=== PATIENT | female | born 1990 | race African-American/Black ===

== ENCOUNTER 2019-06-06 14:08 | Emergency (ER) | payer BC, OTHER ==
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
[2019-06-06] MEDS ORDERED: IBUPROFEN 200 MG TAB PO ONE (17:39)
== END 2019-06-06 17:39 | disposition home or self-care (01) ==
LOC: ER 14:08
DX: M62.830 Muscle spasm of back (principal); M79.18 Myalgia, other site; G35 Multiple sclerosis; V49.9XXA Car occupant (driver) (passenger) injured in unspecified traffic accident, initial encounter
CPT/HCPCS: 81025; 99283

== ENCOUNTER 2020-05-01 09:28 | Emergency (ER) | payer BC ==
--- OUTSIDE RECORDS SUMMARY | 2020-05-01 09:32 | XMS REPORT | Continuity of Care Document ---
:1990 Author Organization [email or web address] Care Team Providers Name Role Phone [email or web address] Unavailable Un available Problems Problem Status Onset Classification Date Comments Sourc e Date Reported Uses oral Active 08/15/2019 [facility] contraception 9 Health Leiomyoma Active 08/15/2019 [facility] 9 Health Medications Medication Details Route Status Patient Ordering Order Source Instructions Provider Date norgestimate- Take 1 Oral Active [facility] ethinyl tablet by [address] [place] [address] estradiol mouth ([id number] daily. ALEX) 0.18/0.215/0. 25 mg-25 mcg tablet glatiramer inject 20 Subcutaneous Active [facility] (COPAXONE) 20 mg under Health mg/mL the skin injection daily. syringe Allergies, Adverse Reactions, Alerts No Known Medication Allergies Immunizations No Data Provided for This Section Results No Data Provided for This Section Pathology Reports No Data Provided for This Section Diagnostic Reports No Data Provided for This Section Consultation Notes No Data Provided for This Section Discharge Summaries No Data Provided for This Section History and Physicals No Data Provided for This Section Vital Signs No Data Provided for This Section Encounters Location Location Encounter Encounter Reason Attending ADM [facility] Source Details Type Number For Provider Date Date Visit [facility] Letter [id number] [place] 08/15 [facility] (Out) [facility] Procedures No Data Provided for This Section Assessment and Plan No Data Provided for This Section Plan of Care Plan of Care Date Source Upcoming EncountersDateTypeSpecialtyCare TeamDescription [facility] 09/09/2019 Office Visit Obstetrics and Gynecology Adwoa Miranda MD[address] [place] [address] DR.[address] yates [address] [place] [address] [phone] (Fax) Health MaintenanceDue DateLast DoneComments VARICELLA VACCINES (1 of 2 - 13+ 2-dose series) 2005 HPV VACCINES (1 - Female 3-dose series) 2007 DTaP,Tdap,and Td Vaccines (1 - Tdap) 2011 PAP SMEAR 2013 INFLUENZA VACCINE (#1) 2019 PNEUMOCOCCAL 0-64 YEARS COMBINED SERIES Aged Out No longer eligible based on patient's age to complete this t opic documented as of this encounter INFLUENZA VACCINE (#1) 2019 [facility] Health PAP SMEAR 2013 [facility] DTaP,Tdap,and Td Vaccines (1 - Tdap) 2011 [facility] HPV VACCINES (1 - Female 3-dose series) 2007 [facility] VARICELLA VACCINES (1 of 2 - 13+ 2-dose 2005 [facility] series) Social History Social History Date Source Tobacco UseTypesPacks/DayYears UsedDate 02/07/2019 [facility] Never Smoker Smokeless Tobacco: Never Used Alcohol UseDrinks/Weekoz/WeekComments Yes rare Sex Assigned at BirthDate Recorded Not on file Job Start DateOccupationIndustry Not on file Not on file Not on file Travel HistoryTravel StartTravel End No recent travel history available. documented as of this encounter Family History No Data Provided for This Section Advance Directives No Data Provided for This Section Functional Status No Data Provided for This Section
--- OUTSIDE RECORDS SUMMARY | 2020-05-01 09:33 | XMS REPORT | Continuity of Care Document ---
:1990 Author Organization [facility] t Address [address] [place] [address] Care Team Providers Name Role Phone NICANOR Attending Clinician Unavailable ENDER Attending Clinician Unavailable Geronimo MARROQUIN Attending Clinician Problems Condition Condition Condition Status Onset Resolution Last Treating Co mments Source Name Details Category Date Date Treatment Clinician Date Uses oral Condition Active 2019-08-15 Memoria contracept 3-14 13:18:27 l ion Uses 00:00: Howie oral 00 contracept ion Active 02/07/2019 08/15/2019 [facility] Health Leiomyoma Condition Active 2019-08-15 Memoria 3-14 13:18:27 l 00:00: Howie Leiomyoma 00 Active 02/07/2019 08/15/2019 [facility] Health History of History of Problem Active U nivers optic optic ity of neuritis neuritis [place] [facility] Vitamin D Vitamin D Problem Active Uni vers deficiency deficiency it y of [place] [facility] Right Right Problem Active Univers facial facial ity of numbness numbness [place] [facility] Multiple Multiple Problem Active Unive rs sclerosis sclerosis ity of [place] [facility] High risk High risk Problem Active Uni vers medication medication it y of use use [place] [facility] Allergies, Adverse Reactions, Alerts This patient has no known allergies or adverse reactions. Family History Family Member Diagnosis Comments Start Date Stop Date Source Mother Family history of [facility] [place] asthma Physicians Father Family history of [facility] [place] hypertension Physicians Social History Smoking Status Start Date Stop Date Source Tobacco smoking status INIS Tera rial Howie Medications Ordered Filled Start Stop Current Ordering Indication Dosage Frequency Signature Comments Components Source Medication Medication Date Date Medication? Clinician (SIG) Name Name Copaxone 40 Copaxone 40 2018-11 Yes LUDMILA Inject 40 Univers MG/ML MG/ML 0-22 BROWN M.D. mg every ity of Subcutaneou Subcutaneou 00:00: Mon, Wed, [place] s Solution s Solution 00 and Fri (3 Physici Prefilled Prefilled days/week) ans Syringe Syringe glatiramer Yes inject 20 Me moria (COPAXONE) 9-19 mg under l 20 mg/mL 13:18: the skin Paty nn injection 27 daily. syringe norgestimat Yes Take 1 Tera heather e-ethinyl 3-14 tablet by l estradiol 00:00: mouth [place] (TRI-LO-SPR 00 daily. INTEC) 0.18/0.215/ 0.25 mg-25 mcg tablet Vital Signs Vital Name Observation Time Observation Value Comments Source Body height 2020-02-05 65 [in_us] [facility] 08:59:00 [place] [facility] Weight 2020-02-05 196 [lb_av] [facility] 08:59:00 [place] [facility] Body mass index 2020-02-05 32.62 kg/m2 [place] [facility] f (BMI) [Ratio] 08:59:00 [place] [facility] BP Systolic 2019-12-26 120 mm[Hg] [facility] 09:21:00 [place] [facility] BP Diastolic 2019-12-26 83 mm[Hg] [facility] :21:00 [place] [facility] Height 2019-12-26 65 [in_us] [facility] 09:21:00 [place] [facility] Weight 2019-12-26 192 [lb_av] [facility] 09:21:00 [place] [facility] Body Mass Index 2019-12-26 31.95 kg/m2 University o f Calculated 09:21:00 [place] [facility] Heart Rate 2019-12-26 86 /min [facility] 09:21:00 [place] [facility] BP Systolic 2019-12-03 117 mm[Hg] Location: [facility] 11:02:00 Position: [place] [facility] Sitting BP Diastolic 2019-12-03 80 mm[Hg] Location: [facility] 11:02:00 Position: [place] [facility] Sitting Height 2019-12-03 65 [in_us] [facility] 11:02:00 [place] [facility] Weight 2019-12-03 196.5 [lb_av] [place] [facility] 11:02:00 [place] [facility] Body Mass Index 2019-12-03 32.7 kg/m2 [place] [facility] Calculated 11:02:00 [place] [facility] Temperature 2019-12-03 97.9 [degF] Method: Oral [facility] 11:02:00 [place] [facility] Heart Rate 2019-12-03 77 /min Quality: Normal [facility] o f 11:02:00 [place] [facility] BP Systolic 2019-09-17 115 mm[Hg] Location: [facility] 13:12:00 Position: [place] [facility] Sitting BP Diastolic 2019-09-17 77 mm[Hg] Location: [facility] 13:12:00 Position: [place] [facility] Sitting Height 2019-09-17 65 [in_us] [facility] 13:12:00 [place] [facility] Weight 2019-09-17 194.375 [lb_av] [place] [facility] 13:12:00 [place] [facility] Body Mass Index 2019-09-17 32.35 kg/m2 [place] [facility] Calculated 13:12:00 [place] [facility] Temperature 2019-09-17 98.2 [degF] Method: Oral [facility] 13:12:00 [place] [facility] Heart Rate 2019-09-17 77 /min Location: [facility] 13:12:00 Brachial [place] [facility] Artery; Procedures Procedure Date / Time Performing Clinician Source Performed [QLH] CBC (INCLUDES 2019-12-26 00:00:00 [facility] DIFF/PLT) Physicians [QLH] CMP W/EGFR 2019-12-26 00:00:00 [facility] Physicians [QLH] HEPATITIS PANEL 2019-12-26 00:00:00 [facility] [QLH] HEPATITIS B CORE AB 2019-12-26 00:00[facility] [QLH] VITAMIN D, 2019-12-03 00:00:00 [facility] 25-HYDROXY, LC/MS/MS Physicians [L] Stratify ABHINAV(TM) Ab 2019-12-03 00:00:00 [facility] [L] NMO IgG 2019-12-03 00:00:00 [facility] [place] Autoantibodies Physicians MRI Brain w/wo contrast 2019-10-14 00:00:00 [facility] [id number] Physicians [QLH] CBC (INCLUDES 2019-09-17 00:00:00 [facility] DIFF/PLT) Physicians [QLH] CMP W/EGFR 2019-09-17 00:00:00 [facility] Physicians [QLH] VITAMIN D, 2019-09-17 00:00:00 [facility] 25-HYDROXY, LC/MS/MS Physicians MRI Brain w/wo contrast 2019-09-17 00:00:00 [facility] [id number] Physicians MRI Spine cervical w/wo 2019-09-17 00:00:00 [facility] contrast [id number] Physicians MRI Spine thoracic w/wo 2019-09-17 00:00:00 [facility] contrast [id number] Physicians History of Dilation And [facility] Curettage Of Cervical Physicians Stump Plan of Care Planned Activity Planned Date Details Comments Source Future Scheduled Test 2019-08-15 13:18:16 Plan of Care [code [facility] = 37653-1] Future Scheduled Test 2019-07-28 00:00:00 [facility] 78[facility] Future Scheduled Test 2013 00:00:00 [facility] = 44811-2[facility] Future Scheduled Test 2011 00:00:00 [facility] = 23775-7] Future Scheduled Test 2007 00:00:00 [facility] = 10153-2] Future Scheduled Test 2005 00:00:00 [facility] = 17314-0] Encounters Start End Encounter Admission Attending Care Care Encounter Source Date/Time Date/Time Type Type Clinicians Facility Department ID 2020-02-05 2020-02-05 Appointmen NICANOR ADKINS Neurology - [id number] Univers 09:00:00 09:00:00 t; NARCISA [place] [facility] [place] M.D. [facility] [place] [facility], [facility]OHIN[facility], [facility] Jonh ans 2019-12-26 2019-12-26 Appointsang ADKINS Neurology - [id number] Univers 09:00:00 09:00:00 tNARCISA Hobbs [place] [facility] [place] M.D. [facility] [place] [facility], ROHINI Center Physi ci M.Natalya ans 2019-12-03 2019-12-03 Appointmen ENDERLUCILLE Neurology - [id number] Univers 10:30:00 10:30:00 t; LUDMILA HANDLEY [place] [facility] [place], [facility]. [facility] 2019-09-17 2019-09-17 AppointLUCILLE Dc Multispecia [id number] [facility] 13:00:00 13:00:00 t; LUDMILA HANDLEY lty Y[facility]. [facility] 2019-08-15 2019-08-15 Letter Geronimo [facility] [id number] 00:00:00 00:00:00 (Out) Hunter Perez [id number] [place] [id number] Professio [phone] [facility] [address] [facility] 2019-08-15 2019-08-15 Delaney Melton KYRUSSELL [id number] 00:00:00 00:00:00 (Out) Hunter Perez [id number] [place] [id number] Professio [phone] [address] Results Test Description Test Time Test Comments Results Result Comments Source [[facility]] CBC (INCLUDES DIFF/PLT) 2019-12-26 18:28:01 Test Item Value Reference Range Interpretation Comme nts WBC (test code = 6690-2) 4.0 {K/CMM} 3.7-10.4 RBC (test code = 789-8) 5.17 {M/CMM} 4.20-5.40 Hgb (test code = 718-7) 14.3 g/dl 12.0-16.0 Hct (test code = 94810-7) 43.9 % 36.0-48.0 MCV (test code = 787-2) 84.9 fL 80.0-98.0 MCH (test code = 785-6) 27.7 pg 27.0-31.0 MCHC (test code = 786-4) 32.6 g/dl 32.0-36.0 RDW (test code = 788-0) 14.0 % 11.5-14.5 Platelet (test code = 15746-6) 228 {K/CMM} 133-450 Mean Platelet Volume (test code = 90000-7) 10.2 fL 7.4-10.4 [facility] Physicians[[facility]] [id number] 18:28:01 Test Item Value Reference Range Interpretation Comments Segmented Neutrophils (test code 47.4 % 45.0-75.0 = 75869-9) Monocytes (test code = 95768-1) 7.1 % 2.0-12.0 Lymphocytes; Above High Threshold 42.8 % 20.0-40.0 (test code = 90015-0) Eosinophils (test code = 64440-6) 2.0 % 0.0-4.0 Basophils (test code = 706-2) 0.7 % 0.0-1.0 Segs-Bands # (test code = 1.9 {K/CMM} 1.5-8.1 06732-4) Lymphocytes # (test code = 1.7 {K/CMM} 1.0-5.5 87046-5) Monocytes # (test code = 05465-8) 0.3 {K/CMM} 0.0-0.8 Eosinophils # (test code = 0.1 {K/CMM} 0.0-0.5 50425-5) [facility] Physicians[[facility]] CMP [id number] 18:28:01 Test Item Value Reference Range Interpretation Comments Sodium Level 143 {mEq/l} 135-145 (test code = 2951-2) Potassium Level 4.7 {mEq/l} 3.5-5.1 (test code = 2823-3) Chloride Level 108 {mEq/l} 95-109 (test code = 2075-0) Carbon Dioxide 28 {mEq/l} 24-32 (test code = 2027-9) AGAP (test code = 11.7 {mEq/l} 10.0-20.0 76914-1) Glucose Lvl (test 72 mg/dl 70-99 Adult refe rence range code = 2345-7) values reflec t the clinical guidel inesof the [place] Diabet es Association. Creatinine Lvl 0.80 mg/dl 0.50-1.40 (test code = 2160-0) Blood Urea 11 mg/dl 7-22 Nitrogen (test code = 3094-0) BUN/Creatinine 14 6-25 Ratio (test code = 3097-3) Total Protein 7.0 g/dl 6.4-8.4 (test code = 2885-2) Albumin Lvl (test 3.8 g/dl 3.5-5.0 code = 1751-7) Globulin (test 3.2 g/dl 2.7-4.2 code = 43418-2) A/G Ratio (test 1.2 0.7-1.6 code = 1759-0) Calcium Level 9.2 mg/dl 8.5-10.5 Total (test code = 63973-4) ALT (test code = 19 u/l 0-65 1743-4) AST (test code = 13 u/l 0-37 50053-0) Alk Phos (test 58 u/l 39-136 The pediatric reference code = 1783-0) ranges for th is test represent a CLSI-basedtrans ference of the CALIPER amni abase of pediatric refer ence intervals to eSiemens Long Key analyzer (Clinical Biochemistry 46 (2013): 4779-9594). [facility] has not internally validated these reference ranges and therefore they should be used only in th e context of a thoroughcl inical assessment. Bili Total (test 0.6 mg/dl 0.2-1.3 code = 1975-2) eGFR (test code = 101 The eGFR i s calculated 35954-2) {ML/MIN/1.7} using the CKD-E PI formula. In mos t young, healthyindividu als the eGFR will be >9 0 mL/min/1.73m2. The eGFR declines with a ge. AneGFR of 60-89 may be normal in some population s, particularly th e elderly, forwhom the CKD -EPI formula has not been extensively perry idated. Use of the eGFR isnot recommended in the following populations:Ind ividuals with unstable c reatinine concentrations, including patient s and those with seri ous co-morbid conditions.Devorah ents with extremes in mus olamide mass or diet.The mani a above are obtained fr om the National Kidney Disease Education Progr am(NKDEP) which additiona gerryy recommends that when the eGFR is used in patientswith ex tremes of body mass index for purposes of karson g dosing, the eGFR should be multiplied by t he estimated BMI. [facility] Physicians[[facility]] HEPATITIS [id number] 18:28:01 Test Item Value Reference Range Interpretation Comments Hepatitis B Surface Antigen (test Negative Negative code = 5195-3) Hepatitis B Core IgM (test code = Negative Negative 75271-6) Hepatitis C Antibody (test code = Negative Negative 39848-5) Hepatitis A IgM (test code = Negative Negative 50521-1) [facility]] HEPATITIS B CORE AB [id number] 18:28:01 Test Item Value Reference Range Interpretation Comments Hepatitis B Core Antibody (test code Negative Negative = 60313-4) [facility] [id number] 07:28:00Spine cervical w/wo contrast MRI 10/01/2019 7:28 CSTCLINICAL: MS (ICD- G35) - CERVICAL SPINE W/WOTECHNIQUE: Multiplanar multisequence imaging of the cervical spine wasperformed without and with administration of intravenous gadolinium.Contrast: 18 mL gadolinium IV contrast.COMPARISON: 08/27/2013 MRI exam.FINDINGS:Multilevel spinal cord abnormal signal lesions are again seen, and the majorityare slightly smaller compared to 2012. For example, the C2-C3 interspace levellesion now measures 5.1 mm, compared to 6.7 mm previously. No mass effect orabnormal enhancement is identified.The spinal cord volume is at lower limits of normal for age.Brainstem medulla lesion measuring 8 mm craniocaudal dimension isalso presenton this exam, not demonstrated on the prior exam.No disc herniation identified. No central canal or foraminal stenosis.IMPRESSION:1. Slightly smaller cervical spinal cord demyelination plaqu es compared vy4845. No mass effect or abnormal enhancement.2. Spinal cord volume at lower limits of normal for age.3. 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 Noabnormal enhancement.--Read by: Richi Gamez MDDictated Date/time: 10/01/19 08:53Electronically Signed by: Richi Gamez MD 10/01/1909:03[facility]] CMP [id number] 10:50:00 Test Item Value Reference Range Interpretation Comments Glucose (test code = 2345-7) 89 mg/dL 65-99 BUN (test code = 3094-0) 13 mg/dL 6-20 Creatinine (test code = 0.87 mg/dL 0.57-1.00 2160-0) eGFR If NonAfricn Am (test 92 mL/min/1.7 >59 code = 03840-2) eGFR If Africn Am (test code = 106 mL/min/1.7 >59 67368-6) BUN/Creatinine Ratio (test 15 9-23 code = 3097-3) Sodium, Serum (test code = 143 mmol/L 845-157 2244-2) Potassium (test code = 2823-3) 4.4 mmol/L 3.5-5.2 Chloride (test code = 2075-0) 106 mmol/L 96-106 Carbon Dioxide, Total (test 24 mmol/L 20-29 code = 8-9) Calcium, Serum (test code = 9.2 mg/dL 8.7-10.2 01471-1) Protein, Total (test code = 6.5 g/dL 6.0-8.5 2885-2) Albumin (test code = 1751-7) 4.1 g/dL 3.5-5.5 Globalulin, Total (test code = 2.4 g/dL 1.5-4.5 65738-3) A/G Ratio (test code = 1759-0) 1.7 1.2-2.2 Bilirubin, Total (test code = 0.4 mg/dL 0.0-1.2 1975-2) Alkaline Phosphatase (test 51 {IU/L} 39-117 code = 6768-6) AST (SGOT) (test code = 12 {IU/L} 0-40 1920-8) ALT (SGPT) (test code = 12 {IU/L} 0-32 1742-6) [facility]] CBC (INCLUDES DIFF/PLT)2019-09-23 10:50:00 Test Item Value Reference Range Interpretation Comments WBC (test code = 6690-2) 4.1 {x10E3/uL} 3.4-10.8 RBC (test code = 789-8) 5.20 {x10E6/uL} 3.77-5.28 Hemoglobin (test code = 14.0 g/dL 11.1-15.9 718-7) Hematocrit (test code = 44.7 % 34.0-46.6 4544-3) MCV (test code = 787-2) 86 fL 79-97 MCH (test code = 785-6) 26.9 pg 26.6-33.0 MCHC; Below Low Threshold 31.3 g/dL 31.5-35.7 (test code = 786-4) RDW (test code = 788-0) 13.2 % 12.3-15.4 Platelets (test code = 777-3) 251 {x10E3/uL} 150-450 Neutrophils (test code = 47 % Not Estab. 770-8) Lymphs (test code = 736-9) 44 % Not Estab. Monocytes (test code = 7 % Not Estab. 5905-5) Eos (test code = 713-8) 2 % Not Estab. Basos (test code = 706-2) 0 % Not Estab. Immature Cells (test code = See Comment Immature Cells) Neutrophils (Absolute) (test 1.9 {x10E3/uL} 1.4-7.0 code = 751-8) Lymphs (Absolute) (test code 1.8 {x10E3/uL} 0.7-3.1 = 731-0) Monocytes(Absolute) (test 0.3 {x10E3/uL} 0.1-0.9 code = 742-7) Eos (Absolute) (test code = 0.1 {x10E3/uL} 0.0-0.4 711-2) Baso (Absolute) (test code = 0.0 {x10E3/uL} 0.0-0.2 704-7) Immature Granulocytes (test 0 % Not Estab. code = 24855-7) Immature Grans (Abs) (test 0.0 {x10E3/uL} 0.0-0.1 code = 21210-5) NRBC (test code = 26922-1) See Comment Hematology Comments: (test See Comment code = 33024-6) [facility] [place] [facility]] VITAMIN D, 25-HYDROXY, LC/MS/[id number] 10:50:00 Test Item Value Reference Range Interpretation Comments Vitamin D, 21.0 ng/mL 30.0-100.0 Vitamin D defic iency has 25-Hydroxy; Below been defin ed by the Low Threshold (test Institut [facility] ofMedicine and code = 00878-3) an Endocrine Society practice guidel ine as alevel of serum 25-OH vitamin D less than 20 ng/mL (1,2).The Endocrine Socie ty went on to further d efine vitamin Dinsuff iciency as a level betw een 21 and 29 ng/mL (2 ).1. IOM ([place] of M edicine). 2010. Dietary r eference intakes for ca lcium and D. Christie D C: The National Academ ies Press.2. Martha VIEIRA, Ivonne TORRES, Belkis guy LOWRY, et al. Evaluatio n, treatment, and prevention of v itamin D deficiency: an Endocrine Socie ty clinical practi ce guideline. JCEM . 2010; 96(7):1911 -30. [facility] [place] [facility]
[2020-05-01] MEDS ORDERED: LIDOCAINE 1% MPF 5 ML VIAL ONE (09:57)
--- NOTE | 2020-05-01 10:19 | ER ---
Nurse's Notes [facility] Name: Brigida Corral Age: 29 yrs Sex: Female : 1990 Arrival Date: 05/01/2020 Time: 09:32 Bed 8 Private MD: Greg Beckwith Diagnosis: Laceration of the right lower leg Presentation: 05/01 09:40 Chief complaint: Patient states: Cut R leg on a glass picture frame when taking out the ph trash, states, " It's pretty deep." Bleeding controlled w/ band aids. Coronavirus screen: Patient denies a cough. Patient denies shortness of breath or difficulty breathing. Patient denies measured and/or subjective temperature greater than 100.4F prior to today's visit. Patient denies travel on a cruise ship or to a country the [facility] currently lists as an affected area. Patient denies contact with known and/or suspected case of COVID-19. Ebola Screen: No symptoms or risks identified at this time. Complicating Factors: There are no complicating factors for this patient. Initial Sepsis Screen: Does the patient meet any 2 criteria? No. Patient's initial sepsis screen is negative. Does the patient have a suspected source of infection? No. Patient's initial sepsis screen is negative. Risk Assessment: Do you want to hurt yourself or someone else? Patient reports no desire to harm self or others. Onset of symptoms was May 01, 2020. 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 - Social history:: Smoking status: Patient denies any tobacco usage or history of. Screenin:44 Abuse screen: Denies threats or abuse. Denies injuries from another. Nutritional ph screening: No deficits noted. Tuberculosis screening: No symptoms or risk factors identified. Fall Risk None identified. Assessment: 09:46 General: Appears in no apparent distress. comfortable, well groomed, Behavior is calm, ph cooperative, appropriate for age. Pain: Complains of pain in lateral aspect of right calf. Neuro: Level of Consciousness is awake, alert, obeys commands, Oriented to person, place, time, situation. Cardiovascular: Capillary refill < 3 seconds in bilateral fingers Patient's skin is warm and dry. Respiratory: Airway is patent Respiratory effort is even, unlabored. Derm: Skin is healthy with good turgor, Skin is pink, warm \\T\\ dry. Musculoskeletal: Circulation, motion, and sensation intact. Range of motion: intact in all extremities. Injury Description: Laceration sustained to lateral aspect of right calf is 0.5 to 2.5 cm long, not bleeding. Vital Signs: 09:40 BP 114 / 77; Pulse 77; Resp 18; Temp 98.5; Pulse Ox 100% on R/A; Weight 88.9 kg; Height ph 5 ft. 5 in. (165.10 cm); 10:46 BP 108 / 78; Pulse 74; Resp 18; Temp 98.0; Pulse Ox 99% on R/A; ph 09:40 Body Mass Index 32.62 (88.90 kg, 165.10 cm) ph ED Course: 09:32 Patient arrived in ED. mr 09:32 Greg Beckwith DO is Private Physician. mr 09:33 [facility] Borjas [facility]. jmm 09:33 Kerwin Izquierdo MD is Attending Physician. jmm 09:36 Gladys Hebert, KATERIN is Primary Nurse. iw 09:43 Triage completed. ph 09:44 Patient has correct armband on for positive identification. Bed in low position. Call ph light in reach. Side rails up X 1. Pulse ox on. NIBP on. Door closed. Noise minimized. Warm blanket given. 09:46 Arm band placed on Patient placed in an exam room, on a stretcher. ph 10:19 Greg Beckwith DO is Referral Physician. jmm 10:25 Assist provider with laceration repair on lateral aspect of right calf that was 2.5 cm. ph or less using sutures. Set up tray. Performed by Jairo CHEW Dressed with Neosporin, Patient tolerated well. 10:46 Patient did not have IV access during this emergency room visit. 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 Exp: ph 01/10/2022. Lot #: [id number]. } Route: IM; Site: right deltoid; 10:47 Follow up: Response: No adverse reaction ph Outcome: 10:19 Discharge ordered by . matt 10:46 Discharged to home via wheelchair. iw 10:46 Condition: good 10:46 Discharge instructions given to patient, Instructed on discharge instructions, follow up and referral plans. Demonstrated understanding of instructions, follow-up care. 10:47 Patient left the ED. ph Signatures: Jairo Borjas PA PA jmm Rivera, Mary mr Williams, Irene, RN RN Shwetha Barker RN RN ph
--- NOTE | 2020-05-01 10:19 | EDPHYS ---
Physician Documentation [facility] Name: Brigida Corral Age: 29 yrs Sex: Female : 1990 Arrival Date: 05/01/2020 Time: 09:32 Bed 8 Private MD: Greg Beckwith ED Physician Kerwin Izquierdo HPI: 05/01 09:44 This 29 yrs old Black Female presents to ER via Ambulatory with complaints of jmm Laceration To Leg. 09:44 The patient has a laceration related to:. Onset: The symptoms/episode began/occurred jmm acutely, just prior to arrival. This is a 29 year old female with a history of MS that presents to the ED with complaints of a laceration which occurred while taking out the trash. Patient was cut with a broken picture frame. Denies other injury. . 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 - Social history:: Smoking status: Patient denies any tobacco usage or history of. ROS: 09:44 Constitutional: Negative for fever, chills, and weight loss, Cardiovascular: Negative jmm for chest pain, palpitations, and edema, Respiratory: Negative for shortness of breath, cough, wheezing, and pleuritic chest pain. 09:44 MS/extremity: Positive for laceration. 09:44 Skin: Positive for laceration(s). 09:44 All other systems are negative. Exam: 09:44 Constitutional: This is a well developed, well nourished patient who is awake, alert, jmm and in no acute distress. Head/Face: atraumatic. Eyes: EOMI, no conjunctival erythema appreciated ENT: Moist Mucus Membranes Neck: Trachea midline, Supple Chest/axilla: Normal chest wall appearance and motion. Cardiovascular: Regular rate and rhythm. No edema appreciated Respiratory: Normal respirations, no respiratory distress appreciated Abdomen/GI: Non distended, soft Back: Normal ROM 09:44 Skin: 3 cm laceration noted to the right lower extremity. 09:44 Neuro: Orientation: is normal, Mentation: is normal, Memory: is normal, Gait: is steady. Vital Signs: 09:40 BP 114 / 77; Pulse 77; Resp 18; Temp 98.5; Pulse Ox 100% on R/A; Weight 88.9 kg; Height ph 5 ft. 5 in. (165.10 cm); 10:46 BP 108 / 78; Pulse 74; Resp 18; Temp 98.0; Pulse Ox 99% on R/A; ph 09:40 Body Mass Index 32.62 (88.90 kg, 165.10 cm) ph Laceration: 09:44 Wound Repair of 3cm ( 1.2in ) subcutaneous laceration to right leg. Distal jmm neuro/vascular/tendon intact. Anesthesia: Local anesthetic administered with 5 mls of 1% lidocaine. Wound prep: Simple cleansing with betadine by me. Skin closed with 5 4-0 Prolene using simple sutures and sterile technique. Patient tolerated well. MDM: 09:45 Patient medically screened. [place] 10:19 Data reviewed: vital signs, nurses notes. Counseling: I had a detailed discussion with [place] the patient and/or guardian regarding: the historical points, exam findings, and any diagnostic results supporting the discharge/admit diagnosis, the need for outpatient follow up, to return to the emergency department if symptoms worsen or persist or if there are any questions or concerns that arise at home. ED course: Patient given wound infection return precautions. Patient understood and agrees with the plan of care. . 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 Exp: ph 01/10/2022. Lot #: [id number]. } Route: IM; Site: right deltoid; 10:47 Follow up: Response: No adverse reaction ph Disposition: 12:46 Co-signature as Attending Physician, Kerwin Izquierdo MD. rn Disposition: 05/01/20 10:19 Discharged to Home. Impression: Laceration of the right lower leg. - Condition is Stable. - Discharge Instructions: Laceration Care, Adult. - Medication Reconciliation Form, Thank You Letter, Antibiotic Education, Prescription Opioid Use, Work release form form. - Follow up: Greg Beckwith DO; When: 1 week; Reason: Staple/Suture removal. Signatures: Jairo Borjas PA PA jmm Nieto, Roman, MD MD rn BarkerShwetha RN RN ph Corrections: (The following items were deleted from the chart) 10:47 10:19 05/01/2020 10:19 Discharged to Home. Impression: Laceration of the right lower ph leg. Condition is Stable. Forms are Medication Reconciliation Form, Thank You Letter, Antibiotic Education, Prescription Opioid Use. Follow up: Greg Beckwith; When: 1 week; Reason: Staple/Suture removal. matt
[2020-05-01] MEDS ORDERED: TETANUS & DIPHTHERIA TOX,ADULT 0.5 ML VIAL ONE (10:30)
[2020-05-01 10:54] VITALS: BP 108/78; TEMP 98; O2SAT 99
== END 2020-05-01 10:47 | disposition home or self-care (01) ==
LOC: ER 09:28
PROC: 0JQN0ZZ Repair Right Lower Leg Subcutaneous Tissue and Fascia, Open Approach (ICD-10-PCS; principal; 2020-05-01)
DX: S81.811A Laceration without foreign body, right lower leg, initial encounter (principal); W26.9XXA Contact with unspecified sharp object(s), initial encounter; Y93.89 Activity, other specified; Y92.018 Other place in single-family (private) house as the place of occurrence of the external cause; Z23 Encounter for immunization
CPT/HCPCS: 90471; 90714; 99283

== ENCOUNTER 2020-05-08 16:39 | Emergency (ER) | payer BC ==
--- OUTSIDE RECORDS SUMMARY | 2020-05-08 16:42 | XMS REPORT | Continuity of Care Document ---
:1990 Author Organization [facility] t Address [address] [place] [address] Care Team Providers Name Role Phone NICANOR Attending Clinician Unavailable ENDER Attending Clinician Unavailable Geronimo MARROQUIN Attending Clinician Problems Condition Condition Condition Status Onset Resolution Last Treating Co mments Source Name Details Category Date Date Treatment Clinician Date Uses oral Condition Active 2019-08-15 Memoria contracept 3-14 13:18:27 l ion Uses 00:00: [place] oral 00 contracept ion Active 02/07/2019 08/15/2019 [facility] Health Leiomyoma Condition Active 2019-08-15 Memoria 3-14 13:18:27 l 00:00: [place] Leiomyoma 00 Active 02/07/2019 08/15/2019 [facility] Health History of History of Problem Active U nivers optic optic ity of neuritis neuritis [place] [facility] Vitamin D Vitamin D Problem Active Uni vers deficiency deficiency it y of [place] [facility] Right Right Problem Active Univers facial facial ity of numbness numbness [place] [facility] Multiple Multiple Problem Active Unive rs sclerosis sclerosis ity of [place] [facility] High risk High risk Problem Active Uni vers medication medication it y of use use [place] [facility] Allergies, Adverse Reactions, Alerts This patient has no known allergies or adverse reactions. Family History Family Member Diagnosis Comments Start Date Stop Date Source Mother Family history of [facility] [place] asthma Physicians Father Family history of [facility] [place] hypertension Physicians Social History Smoking Status Start Date Stop Date Source Tobacco smoking status NHIS Tera rial [place] Medications Ordered Filled Start Stop Current Ordering Indication Dosage Frequency Signature Comments Components Source Medication Medication Date Date Medication? Clinician (SIG) Name Name Copaxone 40 Copaxone 40 2018-11 Yes LUDMILA Inject 40 Univers MG/ML MG/ML 0-22 BROWN M.D. mg every ity of Subcutaneou Subcutaneou 00:00: Mon, Wed, [place] s Solution s Solution 00 and Fri (3 Physici Prefilled Prefilled days/week) ans Syringe Syringe glatiramer Yes inject 20 Me moria (COPAXONE) 9-19 mg under l 20 mg/mL 13:18: the skin Paty nn injection 27 daily. syringe norgestimat Yes Take 1 Tera heather e-ethinyl 3-14 tablet by l estradiol 00:00: mouth Howie (TRI-LO-SPR 00 daily. INTEC) 0.18/0.215/ 0.25 mg-25 mcg tablet Vital Signs Vital Name Observation Time Observation Value Comments Source Body height 2020-02-05 65 [in_us] [facility] 08:59:00 [place] [facility] Weight 2020-02-05 196 [lb_av] [facility] 08:59:00 [place] [facility] Body mass index 2020-02-05 32.62 kg/m2 [place] [facility] f (BMI) [Ratio] 08:59:00 [place] [facility] BP Systolic 2019-12-26 120 mm[Hg] [facility] 09:21:00 [place] [facility] BP Diastolic 2019-12-26 83 mm[Hg] [facility] :21:00 [place] [facility] Height 2019-12-26 65 [in_us] [facility] :21:00 [place] [facility] Weight 2019-12-26 192 [lb_av] [facility] :21:00 [place] [facility] Body Mass Index 2019-12-26 31.95 kg/m2 University o f Calculated 09:21: [place] [facility] Heart Rate 2019-12-26 86 /min [facility] :21:00 [place] [facility] BP Systolic 2019-12-03 117 mm[Hg] Location: [facility] 11:02:00 Position: [place] [facility] Sitting BP Diastolic 2019-12-03 80 mm[Hg] Location: [facility] 11:02:00 Position: [place] [facility] Sitting Height 2019-12-03 65 [in_us] [facility] 11:02:00 [place] [facility] Weight 2019-12-03 196.5 [lb_av] [facility] 11:02:00 [place] [facility] Body Mass Index 2019-12-03 32.7 kg/m2 [place] [facility] Calculated 11:02:00 [place] [facility] Temperature 2019-12-03 97.9 [degF] Method: Oral [facility] 11:02:00 [place] [facility] Heart Rate 2019-12-03 77 /min Quality: Normal [facility] o f 11:02:00 [place] [facility] BP Systolic 2019-09-17 115 mm[Hg] Location: [facility] 13:12:00 Position: [place] [facility] Sitting BP Diastolic 2019-09-17 77 mm[Hg] Location: [facility] 13:12:00 Position: [place] [facility] Sitting Height 2019-09-17 65 [in_us] [facility] 13:12:00 [place] [facility] Weight 2019-09-17 194.375 [lb_av] [place] [facility] 13:12:00 [place] [facility] Body Mass Index 2019-09-17 32.35 kg/m2 [place] [facility] Calculated 13:12:00 [place] [facility] Temperature 2019-09-17 98.2 [degF] Method: Oral [facility] 13:12:00 [place] [facility] Heart Rate 2019-09-17 77 /min Location: [facility] 13:12:00 Brachial [place] [facility] Artery; Procedures Procedure Date / Time Performing Clinician Source Performed [QLH] CBC (INCLUDES 2019-12-26 00:00:00 [facility] DIFF/PLT) Physicians [QLH] CMP W/EGFR 2019-12-26 00:00:00 [facility] Physicians [QLH] HEPATITIS PANEL 2019-12-26 00:00:00 Univer sity [facility] Physicians [QLH] HEPATITIS B CORE AB 2019-12-26 00:00[facility]00 [facility] [QLH] VITAMIN D, 2019-12-03 00:00:00 [facility] 25-HYDROXY, LC/MS/MS Physicians [L] Stratify ABHINAV(TM) Ab 2019-12-03 00:00:00 [facility] [L] NMO IgG 2019-12-03 00:00:00 [facility] [place] Autoantibodies Physicians MRI Brain w/wo contrast 2019-10-14 00:00:00 [facility] [id number] Physicians [QLH] CBC (INCLUDES 2019-09-17 00:00:[facility] Physicians [QLH] CMP W/EGFR 2019-09-17 00:00:00 [facility] Physicians [QLH] VITAMIN D, 2019-09-17 00:00:00 [facility] 25-HYDROXY, LC/MS/MS Physicians MRI Brain w/wo contrast 2019-09-17 00:00:00 [facility] [address] Physicians MRI Spine cervical w/wo 2019-09-17 00:00:00 [facility] contrast [id number] Physicians MRI Spine thoracic w/wo 2019-09-17 00:00:00 [facility] contrast [id number] Physicians History of Dilation And [facility] Curettage Of Cervical Physicians Stump Plan of Care Planned Activity Planned Date Details Comments Source Future Scheduled Test 2019-08-15 13:18:16 Plan of Care [code [facility] = 63123-0] Future Scheduled Test 2019-07-28 00:00:00 [facility] 12036[facility] Future Scheduled Test 2013 00:00:00 Plan of Care [facility] 51913-4] Future Scheduled Test 2011 00:00:00 Plan of Care [facility] = 25993-3] Future Scheduled Test 2007 00:00:00 Plan of Care [[facility] = 59732-1] Future Scheduled Test 2005 00:00:00 Plan of Care [facility] = 20579-1] Encounters Start End Encounter Admission Attending Care Care Encounter Source Date/Time Date/Time Type Type Clinicians Facility Department ID 2020-02-05 2020-02-05 Appointsang ADKINS Neurology - [id number] Univers 09:00:00 09:00:00 t; NARCISA [place] SAMUDRALWA M.D. [facility] NARCISA [facility] John ans 2019-12-26 2019-12-26 Appointsang ADKINS Neurology - [id number] Univers 09:00:00 09:00:00 t; NARCISA [place] SAMUDRAL[place] M.D. [facility] 2019-12-03 2019-12-03 AppointLUCILLE Dc [facility] - [phone] [id number] [facility] 10:30:00 10:30:00 t; LUDMILA HANDLEY [place] of KRISTIN, M.D. [facility] [place] Physici ans 2019-09-17 2019-09-17 AppointLUCILLE Dc Multispecia [id number] [facility] 13:00:00 13:00:00 t; LUDMILA HANDLEY, y - ity gauri [facility]. [facility] 2019-08-15 2019-08-15 Letter Geronimo [facility] [id number] 00:00:00 00:00:00 (Out) Hunter Perez [id number] [place] [id number] Professio [phone] nal 134 [facility] 2019-08-15 2019-08-15 Delaney Melton NCRUSSELL [id number] 00:00:00 00:00:00 (Out) Hunter Perez [id number] [place] [id number] Professio [phone] on license of [facility] 134 [facility] Results Test Description Test Time Test Comments Results Result Comments Source [[facility]] CBC (INCLUDES DIFF/PLT) 2019-12-26 18:28:01 Test Item Value Reference Range Interpretation Comme nts WBC (test code = 6690-2) 4.0 {K/CMM} 3.7-10.4 RBC (test code = 789-8) 5.17 {M/CMM} 4.20-5.40 Hgb (test code = 718-7) 14.3 g/dl 12.0-16.0 Hct (test code = 13770-7) 43.9 % 36.0-48.0 MCV (test code = 787-2) 84.9 fL 80.0-98.0 MCH (test code = 785-6) 27.7 pg 27.0-31.0 MCHC (test code = 786-4) 32.6 g/dl 32.0-36.0 RDW (test code = 788-0) 14.0 % 11.5-14.5 Platelet (test code = 13347-3) 228 {K/CMM} 133-450 Mean Platelet Volume (test code = 18824-4) 10.2 fL 7.4-10.4 [facility] Physicians[[facility]] [id number] 18:28:01 Test Item Value Reference Range Interpretation Comments Segmented Neutrophils (test code 47.4 % 45.0-75.0 = 40963-6) Monocytes (test code = 10810-1) 7.1 % 2.0-12.0 Lymphocytes; Above High Threshold 42.8 % 20.0-40.0 (test code = 41975-9) Eosinophils (test code = 99799-4) 2.0 % 0.0-4.0 Basophils (test code = 706-2) 0.7 % 0.0-1.0 Segs-Bands # (test code = 1.9 {K/CMM} 1.5-8.1 81827-3) Lymphocytes # (test code = 1.7 {K/CMM} 1.0-5.5 23810-4) Monocytes # (test code = 30586-6) 0.3 {K/CMM} 0.0-0.8 Eosinophils # (test code = 0.1 {K/CMM} 0.0-0.5 60105-6) [facility] Physicians[[facility]] CMP [id number] 18:28:01 Test Item Value Reference Range Interpretation Comments Sodium Level 143 {mEq/l} 135-145 (test code = 2951-2) Potassium Level 4.7 {mEq/l} 3.5-5.1 (test code = 2823-3) Chloride Level 108 {mEq/l} 95-109 (test code = 5-0) Carbon Dioxide 28 {mEq/l} 24-32 (test code = 2027-9) AGAP (test code = 11.7 {mEq/l} 10.0-20.0 97414-7) Glucose Lvl (test 72 mg/dl 70-99 Adult refe rence range code = 2345-7) values reflec t the clinical guidel inesof the [place] Diabet es Association. Creatinine Lvl 0.80 mg/dl 0.50-1.40 (test code = 2160-0) Blood Urea 11 mg/dl 7-22 Nitrogen (test code = 3094-0) BUN/Creatinine 14 6-25 Ratio (test code = 3097-3) Total Protein 7.0 g/dl 6.4-8.4 (test code = 2885-2) Albumin Lvl (test 3.8 g/dl 3.5-5.0 code = 1751-7) Globulin (test 3.2 g/dl 2.7-4.2 code = 35589-7) A/G Ratio (test 1.2 0.7-1.6 code = 1759-0) Calcium Level 9.2 mg/dl 8.5-10.5 Total (test code = 03203-6) ALT (test code = 19 u/l 0-65 1743-4) AST (test code = 13 u/l 0-37 05224-1) Alk Phos (test 58 u/l 39-136 The pediatric reference code = 1783-0) ranges for th is test represent a CLSI-basedtrans ference of the CALIPER mani abase of pediatric refer ence intervals to [employer] analyzer (Clinical Biochemistry 46 (2013): 0009-2896). [facility] Likely.co [facility] has not internally validated these reference ranges and therefore they should be used only in th e context of a thoroughcl inical assessment. Bili Total (test 0.6 mg/dl 0.2-1.3 code = 1975-2) eGFR (test code = 101 The eGFR i s calculated 65745-2) {ML/MIN/1.7} using the CKD-E PI formula. In [...] diet.The mani a above are obtained fr the National Kidney Disease Education Progr am(NKDEP) which aleja ruffin recommends that when the eGFR is used in patientswith ex tremes of body mass index for purposes of karson g dosing, the eGFR should be multiplied by t he estimated BMI. [facility]] HEPATITIS [id number] 18:28:01 Test Item Value Reference Range Interpretation Comments Hepatitis B Surface Antigen (test Negative Negative code = 5195-3) Hepatitis B Core IgM (test code = Negative Negative 93819-7) Hepatitis C Antibody (test code = Negative Negative 40331-5) Hepatitis A IgM (test code = Negative Negative 84265-1) [facility]] HEPATITIS B CORE AB [id number] 18:28:01 Test Item Value Reference Range Interpretation Comments Hepatitis B Core Antibody (test code Negative Negative = 02303-0) [facility] [id number] 07:28:00Spine cervical w/wo contrast MRI 10/01/2019 7:28 [...] cervical spinal cord demyelination plaqu es compared se0136. No mass effect or abnormal enhancement.2. Spinal cord volume at lower limits of normal for age.3. 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 Noabnormal enhancement.--Read by: Richi Gamez MDDictated Date/time: 10/01/19 08:53Electronically Signed by: Richi Gamez MD 10/01/1909:03FINAL REPORTUnSalt [facility]] CMP [id number] 10:50:00 Test Item Value Reference Range Interpretation Comments Glucose (test code = 2345-7) 89 mg/dL 65-99 BUN (test code = 3094-0) 13 mg/dL 6-20 Creatinine (test code = 0.87 mg/dL 0.57-1.00 2160-0) eGFR If NonAfricn Am (test 92 mL/min/1.7 >59 code = 09233-1) eGFR If Africn Am (test code = 106 mL/min/1.7 >59 06567-0) BUN/Creatinine Ratio (test 15 - code = 3097-3) Sodium, Serum (test code = 143 mmol/L 996-307 2527-2) Potassium (test code = 2823-3) 4.4 mmol/L 3.5-5.2 Chloride (test code = 2075-0) 106 mmol/L 96-106 Carbon Dioxide, Total (test 24 mmol/L 20-29 code = 8-9) Calcium, Serum (test code = 9.2 mg/dL 8.7-10.2 78017-8) Protein, Total (test code = 6.5 g/dL 6.0-8.5 2885-2) Albumin (test code = 1751-7) 4.1 g/dL 3.5-5.5 Globalulin, Total (test code = 2.4 g/dL 1.5-4.5 23025-8) A/G Ratio (test code = 1759-0) 1.7 1.2-2.2 Bilirubin, Total (test code = 0.4 mg/dL 0.0-1.2 1975-2) Alkaline Phosphatase (test 51 {IU/L} 39-117 code = 6768-6) AST (SGOT) (test code = 12 {IU/L} 0-40 1920-8) ALT (SGPT) (test code = 12 {IU/L} 0-32 1742-6) [facility]] CBC (INCLUDES DIFF/PLT)2019-09-23 10:50:00 Test Item [...] (test 0 % Not Estab. code = 75090-4) Immature Grans (Abs) (test 0.0 {x10E3/uL} 0.0-0.1 code = 13661-2) NRBC (test code = 86985-8) See Comment Hematology Comments: (test See Comment code = 72523-9) [facility]] VITAMIN D, 25-HYDROXY, LC/MS/[id number] 10:50:00 Test Item Value Reference Range Interpretation Comments Vitamin D, 21.0 ng/mL 30.0-100.0 Vitamin D defic iency has 25-Hydroxy; Below been defin ed by the Low Threshold (test Institut e ofMedicine and code = 96877-6) an Endocrine Society practice guidel ine as alevel of serum 25-OH vitamin D less than 20 ng/mL (1,2).The Endocrine Socie ty went on to further d efine vitamin Dinsuff iciency as a level betw een 21 and 29 ng/mL (2 ).1. IOM ([place] of M edicine). 2010. Dietary r eference intakes for ca lcium and D. Christie D C: The National Academ ies Press.2. Martha MF, Ivonne TORRES, Belkis guy LOWRY, et al. Evaluatio n, treatment, and prevention of v itamin D deficiency: an Endocrine Socie ty clinical practi ce guideline. JCEM . 2010; 96(7):1911 -30. [facility]
--- OUTSIDE RECORDS SUMMARY | 2020-05-08 16:42 | XMS REPORT | Continuity of Care Document ---
:1990 Author Organization [facility] Care Team Providers Name Role Phone [facility] Unavailable Un available Problems Problem Status Onset Classification Date Comments Sourc e Date Reported Uses oral Active 08/15/2019 [facility] contraception 9 Health Leiomyoma Active 08/15/2019 [facility] 9 Health Medications Medication Details Route Status Patient Ordering Order Source Instructions Provider Date norgestimate- Take 1 Oral Active [facility] ethinyl tablet by [address] [place] [address] estradiol mouth ([id number] daily. ALEX) 0.18/0.215/0. 25 mg-25 mcg tablet glatiramer inject 20 Subcutaneous Active [facility] (COPAXONE) 20 mg under Health mg/mL [...] Location Location Encounter Encounter Reason Attending ADM [facility] Source Details Type Number For Provider Date Date Visit [facility] Letter [id number] Hunter 08/15 [facility] (Out) D[facility] Procedures No Data Provided for This Section Assessment and Plan No Data Provided for This Section Plan of Care Plan of Care Date Source Upcoming EncountersDateTypeSpecialtyCare TeamDescription [facility] 09/09/2019 Office Visit Obstetrics and Gynecology Adwoa Miranda MD[address] [place] [address] DR.[address] [place] [address] [phone] (Fax) Health MaintenanceDue DateLast DoneComments VARICELLA VACCINES [...] of this encounter INFLUENZA VACCINE (#1) 2019 [facility] Health PAP SMEAR 2013 [facility] DTaP,Tdap,and Td Vaccines (1 - Tdap) 2011 [facility] HPV VACCINES (1 - Female 3-dose series) 2007 [facility] VARICELLA VACCINES (1 of 2 - 13+ 2-dose 2005 [facility] series) Social History Social History Date Source Tobacco UseTypesPacks/DayYears UsedDate 02/07/2019 [facility] Never Smoker Smokeless Tobacco: Never Used Alcohol [...]
--- NOTE | 2020-05-08 16:55 | EDPHYS ---
Physician Documentation [facility] Name: Brigida Corral Age: 29 yrs Sex: Female : 1990 Arrival Date: 05/08/2020 Time: 16:41 Bed 12 Private MD: Greg Beckwith ED Physician Carmelina Brink HPI: 05/08 16:51 This 29 yrs old Black Female presents to ER via Ambulatory with complaints of Suture cp Removal. 16:51 The patient has sutures on the lateral aspect of right calf. Previous treatment: The cp patient was initially treated on May 01, 2020, the care was rendered at [facility], Treatment type: The patient's original treatment included sutures. Sutures/mary beth progress: The patient has no c/o's. The wound is well-healing with no redness, swelling, discharge, or dehiscence reported. 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 - Social history:: Smoking status: Patient denies any tobacco usage or history of. ROS: 16:52 Constitutional: Negative for fever. cp 16:52 Cardiovascular: Negative for chest pain. 16:52 Respiratory: Negative for cough, shortness of breath. 16:52 Abdomen/GI: Negative for abdominal pain. 16:52 Skin: Positive for laceration(s), of the lateral aspect of right calf. 16:53 All other systems are negative. cp Exam: 16:53 Constitutional: The patient appears in no acute distress, alert, awake, comfortable, cp well developed, well nourished. 16:53 Skin: Wound recheck: Suture laceration closure: the wound is healing well, the edges are well approximated, no evidence of dehiscence, no drainage, no erythema, no swelling. Vital Signs: 16:42 BP 116 / 72; Pulse 82; Resp 15; Temp 97.2(TE); Pulse Ox 100% on R/A; Weight 88.9 kg ca1 (R); Height 5 ft. 5 in. (165.10 cm) (R); Pain 0/10; 16:42 Body Mass Index 32.62 (88.90 kg, 165.10 cm) ca1 Procedures: 16:53 Suture/Staple removal: Removed 2 sutures, from lateral aspect of right calf, site cp appears well healed, dressed with band aid, Patient tolerated well. MDM: 16:54 Patient medically screened. 16:54 Data reviewed: vital signs, nurses notes, and as a result, I will discharge patient. 16:54 Counseling: I had a detailed discussion with the patient and/or guardian regarding: the cp historical points, exam findings, and any diagnostic results supporting the discharge/admit diagnosis, to return to the emergency department if symptoms worsen or persist or if there are any questions or concerns that arise at home. Response to treatment: the patient's symptoms have markedly improved after treatment. Administered Medications: No medications were administered Disposition: 17:00 Chart complete. cp 18:47 Co-signature as Attending Physician, Carmelina Brink MD. jessica Disposition: 05/08/20 16:54 Discharged to Home. Impression: Encounter for removal of sutures. - Condition is Stable. - Discharge Instructions: Suture Removal, Care After. - Medication Reconciliation Form, Thank You Letter, Antibiotic Education, Prescription Opioid Use form. - Follow up: Private Physician; When: 1 - 2 days; Reason: Worsening of condition. - Problem is new. - Symptoms have improved. Signatures: Carson Schulte PA PA cp Alzahri, Mohammad, MD MD ma2 Mikala Lancaster RN RN ca1 Corrections: (The following items were deleted from the chart) 16:58 16:54 05/08/2020 16:54 Discharged to Home. Impression: Encounter for removal of ca1 sutures. Condition is Stable. Forms are Medication Reconciliation Form, Thank You Letter, Antibiotic Education, Prescription Opioid Use. Follow up: Private Physician; When: 1 - 2 days; Reason: Worsening of condition. Problem is new. Symptoms have improved. cp
--- NOTE | 2020-05-08 16:55 | ER ---
Nurse's Notes [facility] Name: Brigida Corral Age: 29 yrs Sex: Female : 1990 Arrival Date: 05/08/2020 Time: 16:41 Bed 12 Private MD: Greg Beckwith Diagnosis: Encounter for removal of sutures Presentation: 05/08 16:42 Chief complaint: Patient states: For suture removal on R lower leg. Lac sutured 7 days ca1 ago. Coronavirus screen: Proceed with normal triage. Patient denies a cough. Patient denies shortness of breath or difficulty breathing. Patient denies measured and/or subjective temperature greater than 100.4F prior to today's visit. Patient denies travel on a cruise ship or to a country the [facility] currently lists as an affected area. Patient reports contact with known and/or suspected case of COVID-19. Ebola Screen: Patient negative for fever greater than or equal to 101.5 degrees Fahrenheit, and additional compatible Ebola Virus Disease symptoms Patient denies exposure to infectious person. Patient denies travel to an Ebola-affected area in the 21 days before illness onset. No symptoms or risks identified at this time. Initial Sepsis Screen: Does the patient meet any 2 criteria? No. Patient's initial sepsis screen is negative. Does the patient have a suspected source of infection? No. Patient's initial sepsis screen is negative. Risk Assessment: Do you want to hurt yourself or someone else? Patient reports no desire to harm self or others. Onset of symptoms was May 08, 2020. 16:42 Method Of Arrival: Ambulatory ca1 16:42 Acuity: RUMA 5 ca1 Triage Assessment: 16:42 General: Appears in no apparent distress. comfortable, Behavior is calm, cooperative, ca1 appropriate for age. Pain: Denies pain. Derm: Skin is intact, is healthy with good turgor, Skin is pink, warm \T\ dry. Musculoskeletal: Circulation, motion, and sensation intact. Capillary refill < 3 seconds. 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 - Social history:: Smoking status: Patient denies any tobacco usage or history of. Screenin:49 Abuse screen: Denies threats or abuse. Denies injuries from another. Nutritional ca1 screening: No deficits noted. Tuberculosis screening: No symptoms or risk factors identified. Fall Risk None identified. Assessment: 16:48 Reassessment: SEE TRIAGE NOTES. ca1 Vital Signs: 16:42 BP 116 / 72; Pulse 82; Resp 15; Temp 97.2(TE); Pulse Ox 100% on R/A; Weight 88.9 kg ca1 (R); Height 5 ft. 5 in. (165.10 cm) (R); Pain 0/10; 16:42 Body Mass Index 32.62 (88.90 kg, 165.10 cm) ca1 ED Course: 16:41 Patient arrived in ED. ag5 16:41 Greg Beckwith DO is Private Physician. ag5 16:42 Arm band placed on right wrist. ca1 16:46 Triage completed. ca1 16:47 Mikala Lancaster RN is Primary Nurse. ca1 16:48 Carson Schulte PA is PHCP. cp 16:48 Carmelina Brink MD is Attending Physician. cp 16:48 Yvonne Shell FNP-C is PHCP. kb 16:48 Carson Schulte PA is PHCP. kb 16:49 Patient has correct armband on for positive identification. ca1 16:49 No provider procedures requiring assistance completed. ca1 16:49 Patient did not have IV access during this emergency room visit. ca1 16:53 Removal of Removed sutures from lateral aspect of right calf Suture site is well healed ca1 Patient tolerated well. Administered Medications: No medications were administered Outcome: 16:54 Discharge ordered by MD. cp 16:58 Discharged to home ambulatory. ca1 16:58 Condition: stable 16:58 Discharge instructions given to patient, Instructed on discharge instructions, follow up and referral plans. Demonstrated understanding of instructions, follow-up care. 16:58 Patient left the ED. ca1 Signatures: Yvonne Shell FNP-C JIG GRINDER-Ckb Carson Schulte PA PA cp Mikala Lancaster RN RN ca1 Juan Sy ag5 Corrections: (The following items were deleted from the chart) 16:58 16:49 Removal of Removed sutures from lateral aspect of right calf Suture site is well ca1 healed Patient tolerated well. ca1
[2020-05-08 17:07] VITALS: BP 116/72; TEMP 97.2; O2SAT 100
== END 2020-05-08 16:58 | disposition home or self-care (01) ==
LOC: ER 16:39
DX: Z48.02 Encounter for removal of sutures (principal); Z91.040 Latex allergy status
CPT/HCPCS: 99281

== ENCOUNTER 2021-01-20 00:01 | Emergency (ER) | payer BC ==
--- OUTSIDE RECORDS SUMMARY | 2021-01-20 00:06 | XMS REPORT | Continuity of Care Document ---
:1990 Author Organization [facility] t Address [address] [place] [address] Care Team Providers Name Role Phone PARRIS Attending Clinician Unavailable NICANOR Attending Clinician Unavailable JASON Attending Clinician Unavailable Ruben MARROQUIN, Cam Attending Clinician Doctor Unassigned, Name Attending Clinician Unavailable ENDER Attending Clinician Unavailable Geronimo MARROQUIN Attending Clinician Problems Condition Condition Condition Status Onset Resolution Last Treating Co mments Source Name Details Category Date Date Treatment Clinician Date History of History of Problem Active U nivers optic optic ity of neuritis neuritis [place] [facility] Vitamin D Vitamin D Problem Active Uni vers deficiency deficiency it y of [place] [facility] Right Right Problem Active Univers facial facial ity of numbness numbness [place] [facility] Multiple Multiple Problem Active Unive rs sclerosis sclerosis ity of [place] [facility] High risk High risk Problem Active Uni vers medication medication it y of use use [place] [facility] Keloid Keloid Problem Active Univers ity of [place] [facility] Vertigo Vertigo Problem Active Univers [facility] of [place] [facility] Ingrowing Ingrowing Problem Active Uni vers toenail toenail ity of [place] [facility] Paronychia Paronychia Problem Active U nivers of toe of of toe of [place] of left foot [place] foot [place] Paronychia Paronychia Problem Active U nivers of toe of [place] [facility] Allergies, Adverse Reactions, Alerts This patient has no known allergies or adverse reactions. Family History Family Member Diagnosis Comments Start Date Stop Date Source Mother Family history of [facility] ity of [place] asthma Physicians Father Family history of [facility] [place] hypertension Physicians Social History Smoking Status Start Date Stop Date Source Never smoked tobacco (finding) U niversity [facility] Medications Ordered Filled Start Stop Current Ordering Indication Dosage Frequency Signature Comments Components Source Medication Medication Date Date Medication? Clinician (SIG) Name Name Meclizine Meclizine 2019-11 Yes NARCISA Q0.25D TAKE 1 Univers HCl - 25 MG HCl - 25 MG 0-15 SAMUDRALWA TABLET 3-4 ity of Oral Tablet Oral Tablet 00:00: R M.D. TIMES [place] 00 DAILY Physici NEEDED. ans Copaxone 40 Copaxone 40 2018-11 Yes LUDMILA Inject 40 Univers MG/ML MG/ML 0-22 BROWN M.D. mg every ity of Subcutaneou Subcutaneou 00:00: Mon, Wed, [place] s Solution s Solution 00 and Fri (3 Physici Prefilled Prefilled days/week) ans Syringe Syringe Vital Signs Vital Name Observation Time Observation Value Comments Source Systolic blood 2020-09-10 110 mm[Hg] [facility] pressure 14:12:00 [place] [facility] s Diastolic blood 2020-09-10 69 mm[Hg] [place] pressure 14:12:00 [place] [facility] Weight 2020-09-10 198 [lb_av] [facility] 14:12: [place] [facility] Body mass index 2020-09-10 32.95 kg/m2 [place] f (BMI) [Ratio] 14:12:00 [place] [facility] Heart Rate 2020-09-10 89 /min [facility] 14:12:00 [place] [facility] Body height 2020-02-05 65 [in_us] [facility] 08:59:00 [place] [facility] Weight 2020-02-05 196 [lb_av] [facility] 08:59:00 [place] [facility] Body mass index 2020-02-05 32.62 kg/m2 [place] (BMI) [Ratio] 08:59:00 [place] [facility] BP Systolic 2019-12-26 120 mm[Hg] [facility] 09:21:00 [place] [facility] BP Diastolic 2019-12-26 83 mm[Hg] [facility] 09:21:00 [place] [facility] Height 2019-12-26 65 [in_us] [facility] 09:21:00 [place] [facility] Weight 2019-12-26 192 [lb_av] [facility] 09:21:00 [place] [facility] Body Mass Index 2019-12-26 31.95 kg/m2 University o f Calculated 09:21:00 [place] [facility] Heart Rate 2019-12-26 86 /min [facility] 09:21:00 [place] [facility] BP Systolic 2019-12-03 117 mm[Hg] [facility] [facility] 11:02:00 Position: [place] [facility] Sitting BP Diastolic 2019-12-03 80 mm[Hg] Location: [facility] 11:02:00 Position: [place] [facility] s Sitting Height 2019-12-03 65 [in_us] [facility] 11:02:00 [place] [facility] Weight 2019-12-03 196.5 [lb_av] [facility] 11:02:00 [place] [facility] Body Mass Index 2019-12-03 32.7 kg/m2 University o f Calculated 11:02:00 [place] [facility] Temperature 2019-12-03 97.9 [degF] Method: Oral University 11:02:00 [place] [facility] Heart Rate 2019-12-03 77 /min Quality: Normal University o f 11:02:00 [place] [facility] BP Systolic 2019-09-17 115 mm[Hg] Location: [facility] 13:12:00 Position: [place] Physician s Sitting BP Diastolic 2019-09-17 77 mm[Hg] Location: [facility] 13:12:00 Position: [place] Physician s Sitting Height 2019-09-17 65 [in_us] University 13:12:00 [place] [facility] Weight 2019-09-17 194.375 [lb_av] University o f 13:12:00 [place] [facility] Body Mass Index 2019-09-17 32.35 kg/m2 University o f Calculated 13:12:00 [place] [facility] Temperature 2019-09-17 98.2 [degF] Method: Oral University of 13:12:00 [place] [facility] Heart Rate 2019-09-17 77 /min Location: [facility] 13:12:00 Brachial [place] [facility] Artery; Procedures Procedure Date / Time Performing Clinician Source Performed [QLH] CBC (INCLUDES 2019-12-26 00:00:00 [facility] DIFF/PLT) Physicians [QLH] CMP W/EGFR 2019-12-26 00:00:00 [facility] Physicians [QLH] HEPATITIS PANEL 2019-12-26 00:[facility] [facility] Physicians [QLH] HEPATITIS B CORE AB 2019-12-26 00:00[facility] [[facility]] VITAMIN D, 2019-12-03 00:00:00 [facility] 25-HYDROXY, LC/MS/MS Physicians [L] Stratify ABHINAV(TM) Ab 2019-12-03 00:00[facility] [L] NMO IgG 2019-12-03 00:00:00 [place] f [place] Autoantibodies Physicians MRI Brain w/wo contrast 2019-10-14 00:00:00 [facility] [id number] Physicians [QLH] CBC (INCLUDES 2019-09-17 00:00:00 [facility] DIFF/PLT) Physicians [QLH] CMP W/EGFR 2019-09-17 00:00:00 [facility] Physicians [QLH] VITAMIN D, 2019-09-17 00:00:00 [facility] 25-HYDROXY, LC/MS/MS Physicians MRI Brain w/wo contrast 2019-09-17 00:00:00 [facility] [id number] Physicians MRI Spine cervical w/wo 2019-09-17 00:00:00 [facility] contrast [id number] Physicians MRI Spine thoracic w/wo 2019-09-17 00:00:00 [facility] contrast [id number] Physicians History of Dilation And [facility] Curettage Of Cervical Physicians Stump Plan of Care Planned Activity Planned Date Details Comments Source Future Appointment 2021-03-11 John BREWSTER [facility] 11:30:00 Kameron VICK Encounters Start End Encounter Admission Attending Care Care Encounter Source Date/Time Date/Time Type Type Clinicians Facility Department ID 2020-09-10 2020-09-10 AppointLUCILLE Stoddard Orthopedics [id number] [facility] 14:00:00 14:00:00 tJOHN PIERSON, - [place] of HAILEE LOPEZM [address] DPM Physici ans 2020-09-10 2020-09-10 Appointsang ADKINS Neurology - [id number] [facility] 13:00:00 13:00:00 t; , Dana BREWSTER M.D. [facility] NARCISA [place] Phys[facility] ci MKaren ans 2020-09-10 2020-09-10 Appointmen LUCILLE GOMEZ [facility] [id number] Univers 08:30:00 08:30:00 t; MARCI GOMEZ M.D. ity Dana COVARRUBIAS M.D. Physici ans 2020-09-10 2020-09-[address] [facility] [id number] 00:00:00 00:00:00 Cam Cheraw [id number] [place] [id number] Professio [id number] [address] 2020-09-09 2020-09-[address] [facility] [id number] 00:00:00 00:00:00 Cam Cheraw [id number] [place] [id number] Professio [phone] [address] 2020-06-12 2020-06-12 Orders Doctor DELLA [id number] 00:00:00 00:00:00 Only Unassigned, ÓSCAR [id number] [facility] [id number] [id number] 2020-05-17 2020-05-17 Orders Doctor DELLA [id number] 00:00:00 00:00:00 Only Unassigned, ÓSCAR [id number] [facility] [id number] [id number] 2020-02-05 2020-02-05 Appointmen NICANOR [facility] Neurology - [id number] Univers 09:00:00 09:00:00 t; , Dana BREWSTER M.D. [facility] NARCISA [facility] Physi ci MKaren ans 2019-12-26 2019-12-26 Appointmen NICANOR ADKINS Neurology - [id number] Univers 09:00:00 09:00:00 t; , Dana BREWSTER M.D. [facility] 2019-12-03 2019-12-03 Appointmen LUCILLE HANDLEY Neurology - [id number] [facility] 10:30:00 10:30:00 t; LUDMILA HANDLEY [place] of [place]ST[place], M.D. [facility] ans 2019-09-17 2019-09-17 AppointLUCILLE Dc Multispecia [id number] [facility] 13:00:00 13:00:00 t; LUDMILA HANDLEY y - Yossi M.D. [facility] 2019-08-15 2019-08-[address] [facility] [id number] 00:00:00 00:00:00 (Out) Hunter Chris [id number] [place] [id number] Professio [id number] [address] Results Test Description Test Time Test Comments Results Result Comments Source [[facility]] CBC (INCLUDES DIFF/PLT) 2019-12-26 18:28:01 Test Item Value Reference Range Interpretation Comme nts WBC (test code = 6690-2) 4.0 {K/CMM} 3.7-10.4 RBC (test code = 789-8) 5.17 {M/CMM} 4.20-5.40 Hgb (test code = 718-7) 14.3 g/dl 12.0-16.0 Hct (test code = 69505-3) 43.9 % 36.0-48.0 MCV (test code = 787-2) 84.9 fL 80.0-98.0 MCH (test code = 785-6) 27.7 pg 27.0-31.0 MCHC (test code = 786-4) 32.6 g/dl 32.0-36.0 RDW (test code = 788-0) 14.0 % 11.5-14.5 Platelet (test code = 03007-4) 228 {K/CMM} 133-450 Mean Platelet Volume (test code = 69348-9) 10.2 fL 7.4-10.4 [facility] [place] [facility] Physicians[[facility]] [id number] 18:28:01 Test Item Value Reference Range Interpretation Comments Segmented Neutrophils (test code 47.4 % 45.0-75.0 = 45377-0) Monocytes (test code = 98599-1) 7.1 % 2.0-12.0 Lymphocytes; Above High Threshold 42.8 % 20.0-40.0 (test code = 95838-8) Eosinophils (test code = 88948-1) 2.0 % 0.0-4.0 Basophils (test code = 706-2) 0.7 % 0.0-1.0 Segs-Bands # (test code = 1.9 {K/CMM} 1.5-8.1 52669-3) Lymphocytes # (test code = 1.7 {K/CMM} 1.0-5.5 03381-2) Monocytes # (test code = 66457-4) 0.3 {K/CMM} 0.0-0.8 Eosinophils # (test code = 0.1 {K/CMM} 0.0-0.5 78487-9) [facility] Physicians[[facility]] CMP [id number] 18:28:01 Test Item Value Reference Range Interpretation Comments Sodium Level 143 {mEq/l} 135-145 (test code = 2951-2) Potassium Level 4.7 {mEq/l} 3.5-5.1 (test code = 2823-3) Chloride Level 108 {mEq/l} 95-109 (test code = 5-0) Carbon Dioxide 28 {mEq/l} 24-32 (test code = 2027-9) AGAP (test code = 11.7 {mEq/l} 10.0-20.0 30416-7) Glucose Lvl (test 72 mg/dl 70-99 Adult refe rence range code = 2345-7) values reflec t the clinical guidel inesof the [place] Diabet es Association. Creatinine Lvl 0.80 mg/dl 0.50-1.40 (test code = 2160-0) Blood Urea 11 mg/dl 7-22 Nitrogen (test code = 3094-0) BUN/Creatinine 14 6-25 Ratio (test code = 3097-3) Total Protein 7.0 g/dl 6.4-8.4 (test code = 2885-2) Albumin Lvl (test 3.8 g/dl 3.5-5.0 code = 1751-7) Globulin (test 3.2 g/dl 2.7-4.2 code = 10686-9) A/G Ratio (test 1.2 0.7-1.6 code = 1759-0) Calcium Level 9.2 mg/dl 8.5-10.5 Total (test code = 71349-6) ALT (test code = 19 u/l 0-65 1743-4) AST (test code = 13 u/l 0-37 33005-8) Alk Phos (test 58 u/l 39-136 The pediatric reference code = 1783-0) ranges for th is test represent a CLSI-basedtrans ference of the CALIPER mani abase of pediatric refer ence intervals to eSiemens Ward analyzer (Clinical Biochemistry 46 (2013): 4456-4065). [facility] has not internally validated these reference ranges and therefore they should be used only in th e context of a thoroughcl inical assessment. Bili Total (test 0.6 mg/dl 0.2-1.3 code = 1975-2) eGFR (test code = 101 The eGFR i s calculated 48530-2) {ML/MIN/1.7} using the CKD-E PI formula. In [...] be multiplied by t he estimated BMI. [facility]] HEPATITIS [id number] 18:28:01 Test Item Value Reference Range Interpretation Comments Hepatitis B Surface Antigen (test Negative Negative code = 5195-3) Hepatitis B Core IgM (test code = Negative Negative 17989-9) Hepatitis C Antibody (test code = Negative Negative 32171-3) Hepatitis A IgM (test code = Negative Negative 79365-7) [facility] Physicians[[facility]] HEPATITIS B CORE AB [id number] 18:28:01 Test Item Value Reference Range Interpretation Comments Hepatitis B Core Antibody (test code Negative Negative = 69605-1) [facility] [id number] 07:28:00Spine cervical w/wo contrast MRI 10/01/2019 7:28 CSTCLINICAL: MS (ICD- G35) - CERVICAL SPINE W/WOTECHNIQUE: Multiplanar multisequence imaging of the cervical spine wasperformed without and with administration of intravenous gadolinium.Contrast: 18 mL gadolinium IV contrast.COMPARISON: 08/27/2013 MRI exam.FINDINGS:Multilevel spinal cord abnormal signal lesions are again seen, and the majorityare slightly smaller compared to 2013. For example, the C2-C3 interspace levellesion now [...] cervical spinal cord demyelination plaqu es compared bp3189. No mass effect or abnormal enhancement.2. Spinal cord volume at lower limits of normal for age.3. 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 Noabnormal enhancement.--Read by: Richi Gamez MDDictated Date/time: 10/01/19 08:53Electronically Signed by: Richi Gamez MD 10/01/1909:03FINAL REPORTUnIntermountain Healthcare Physicians[[facility]] CMP [id number] 10:50:00 Test Item Value Reference Range Interpretation Comments Glucose (test code = 2345-7) 89 mg/dL 65-99 BUN (test code = 3094-0) 13 mg/dL 6-20 Creatinine (test code = 0.87 mg/dL 0.57-1.00 2160-0) eGFR If NonAfricn Am (test 92 mL/min/1.7 >59 code = 62984-9) eGFR If Africn Am (test code = 106 mL/min/1.7 >59 73264-5) BUN/Creatinine Ratio (test 15 -23 code = 3097-3) Sodium, Serum (test code = 143 mmol/L 437-218 1127-2) Potassium (test code = 2823-3) 4.4 mmol/L 3.5-5.2 Chloride (test code = 2075-0) 106 mmol/L 96-106 Carbon Dioxide, Total (test 24 mmol/L 20-29 code = 8-9) Calcium, Serum (test code = 9.2 mg/dL 8.7-10.2 75959-2) Protein, Total (test code = 6.5 g/dL 6.0-8.5 2885-2) Albumin (test code = 1751-7) 4.1 g/dL 3.5-5.5 Globalulin, Total (test code = 2.4 g/dL 1.5-4.5 14222-6) A/G Ratio (test code = 1759-0) 1.7 1.2-2.2 Bilirubin, Total (test code = 0.4 mg/dL 0.0-1.2 1975-2) Alkaline Phosphatase (test 51 {IU/L} 39-117 code = 6768-6) AST (SGOT) (test code = 12 {IU/L} 0-40 1920-8) ALT (SGPT) (test code = 12 {IU/L} 0-32 1742-6) [facility]] CBC (INCLUDES DIFF/PLT)2019-09-23 10:50:00 Test Item [...] (test 0 % Not Estab. code = 29709-1) Immature Grans (Abs) (test 0.0 {x10E3/uL} 0.0-0.1 code = 05690-2) NRBC (test code = 45165-2) See Comment Hematology Comments: (test See Comment code = 85460-8) [facility]] VITAMIN D, 25-HYDROXY, LC/MS/[id number] 10:50:00 Test Item Value Reference Range Interpretation Comments Vitamin D, 21.0 ng/mL 30.0-100.0 Vitamin D defic iency has 25-Hydroxy; Below been defin ed by the Low Threshold (test Institut e ofMedicine and code = 73897-9) an Endocrine Society practice guidel ine as alevel of serum 25-OH vitamin D less than 20 ng/mL (1,2).The Endocrine Socie ty went on to further d efine vitamin Dinsuff iciency as a level betw een 21 and 29 ng/mL (2 ).1. IOM ([place] edicine). 2010. Dietary r eference intakes for ca lcium and D. Christie D C: The National [employer] ies Press.2. Martha VIEIRA, Ivonne TORRES, Belkis guy LOWRY, et al. Evaluatio n, treatment, and prevention of v itamin D deficiency: an Endocrine Socie ty clinical practi ce guideline. JCEM . 2010; 96(7):1911 -30. [facility]
--- NOTE | 2021-01-20 00:33 | ER ---
Nurse's Notes [facility] Name: Brigida Corral Age: 30 yrs Sex: Female : 1990 Arrival Date: 01/20/2021 Time: 00:06 Bed Waiting Private MD: Diagnosis: Viral infection, unspecified;Nausea Presentation: 01/20 00:24 Chief complaint: Patient states: she is here for a COVID test has been having cough, bb body aches, and difficulty breathing for several days. Coronavirus screen: cough unrelated to allergies, difficulty breathing, muscle pain. Ebola Screen: No symptoms or risks identified at this time. Initial Sepsis Screen: Does the patient meet any 2 criteria? No. Patient's initial sepsis screen is negative. Does the patient have a suspected source of infection? No. Patient's initial sepsis screen is negative. Risk Assessment: Do you want to hurt yourself or someone else? Patient reports no desire to harm self or others. Onset of symptoms was January 18, 2021. 00:24 Method Of Arrival: Ambulatory bb 00:24 Acuity: RUMA 4 bb Triage Assessment: 00:28 General: Appears in no apparent distress. Behavior is calm, cooperative. Pain: Denies bb pain. Neuro: Level of Consciousness is awake, alert, obeys commands, Oriented to person, place, time, situation. Cardiovascular: No deficits noted. Respiratory: Respiratory effort is even, unlabored, Respiratory pattern is regular. Derm: Skin is dry, Skin is normal, Skin temperature is warm. Musculoskeletal: Circulation, motion, and sensation intact. 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 - Social history:: Smoking status: Patient denies any tobacco usage or history of. Screenin:39 Abuse screen: Denies threats or abuse. Nutritional screening: No deficits noted. bb Tuberculosis screening: No symptoms or risk factors identified. Fall Risk None identified. Assessment: 00:30 Reassessment: No changes from previously documented assessment. see triage assessment. bb Dr Gerard in triage for pt evaluation. Pt instructed that if test is positive she will be notified. 00:40 Reassessment: Patient is alert, oriented x 3, equal unlabored respirations, skin bb warm/dry/pink. pt verbalized understanding of and agrees to plan of care discharge instructions given pt ambulated with steady gait to exit accompanied by spouse. Vital Signs: 00:24 BP 120 / 78; Pulse 72; Resp 16 S; Temp 98.2(O); Pulse Ox 99% on R/A; Weight 95.25 kg bb (R); Height 5 ft. 5 in. (165.10 cm) (R); 00:24 Body Mass Index 34.95 (95.25 kg, 165.10 cm) bb ED Course: 00:06 Patient arrived in ED. am4 00:26 Dhaval Gerard MD is Attending Physician. tw4 00:26 Triage completed. bb 00:28 Arm band placed on. bb 00:39 COVID swab sent to lab. bb 00:39 No provider procedures requiring assistance completed. Patient did not have IV access bb during this emergency room visit. 00:40 Patient has correct armband on for positive identification. bb Administered Medications: No medications were administered Outcome: 00:33 Discharge ordered by . tw4 00:39 Discharged to home ambulatory, with family. bb 00:39 Condition: stable 00:39 Discharge instructions given to patient, Instructed on discharge instructions, follow up and referral plans. medication usage, Demonstrated understanding of instructions, follow-up care, Prescriptions given X 1. 00:40 Patient left the ED. bb Signatures: Jacinta Stoddard RN RN bb Dhaval Gerard MD MD tw4 [facility]
[2021-01-20 01:46] VITALS: BP 120/78; TEMP 98.2; O2SAT 99
--- NOTE | 2021-01-21 00:45 | EDPHYS ---
Physician Documentation [facility] Name: Brigida Corral Age: 30 yrs Sex: Female : 1990 Arrival Date: 01/20/2021 Time: 00:06 Bed Waiting Private MD: ED Physician Dhaval Gerard HPI: 01/20 06:39 This 30 yrs old Black Female presents to ER via Ambulatory with complaints of COVID tw4 TEST. 06:39 The patient or guardian reports hoarse voice, sore throat . Onset: The symptoms/episode tw4 began/occurred yesterday. Modifying factors: The symptoms are alleviated by nothing. the symptoms are aggravated by nothing. Associated signs and symptoms: The patient has no apparent associated signs or symptoms. Severity of symptoms: At their worst the symptoms were mild in the emergency department the symptoms are unchanged. The patient has not experienced similar symptoms in the past. 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 - Social history:: Smoking status: Patient denies any tobacco usage or history of. ROS: 06:39 Constitutional: Negative for fever, chills, and weight loss, Eyes: Negative for injury, tw4 pain, redness, and discharge. 06:39 Cardiovascular: Negative for chest pain, palpitations, and edema, Respiratory: Negative for shortness of breath, cough, wheezing, and pleuritic chest pain, Abdomen/GI: Negative for abdominal pain, nausea, vomiting, diarrhea, and constipation, Back: Negative for injury and pain, MS/Extremity: Negative for injury and deformity, Skin: Negative for injury, rash, and discoloration, Neuro: Negative for headache, weakness, numbness, tingling, and seizure. 06:39 Constitutional: Positive for body aches. 06:39 ENT: Positive for sore throat. Exam: 06:39 Constitutional: This is a well developed, well nourished patient who is awake, alert, tw4 and in no acute distress. Head/Face: Normocephalic, atraumatic. Chest/axilla: Normal chest wall appearance and motion. Nontender with no deformity. No lesions are appreciated. Cardiovascular: Regular rate and rhythm with a normal S1 and S2. No gallops, murmurs, or rubs. Normal PMI, no JVD. No pulse deficits. Respiratory: Lungs have equal breath sounds bilaterally, clear to auscultation and percussion. No rales, rhonchi or wheezes noted. No increased work of breathing, no retractions or nasal flaring. Abdomen/GI: Soft, non-tender, with normal bowel sounds. No distension or tympany. No guarding or rebound. No evidence of tenderness throughout. Back: No spinal tenderness. No costovertebral tenderness. Full range of motion. Skin: Warm, dry with normal turgor. Normal color with no rashes, no lesions, and no evidence of cellulitis. MS/ Extremity: Pulses equal, no cyanosis. Neurovascular intact. Full, normal range of motion. Neuro: Awake and alert, GCS 15, oriented to person, place, time, and situation. Cranial nerves II-XII grossly intact. Motor strength 5/5 in all extremities. Sensory grossly intact. Cerebellar exam normal. Normal gait. Vital Signs: 00:24 BP 120 / 78; Pulse 72; Resp 16 S; Temp 98.2(O); Pulse Ox 99% on R/A; Weight 95.25 kg bb (R); Height 5 ft. 5 in. (165.10 cm) (R); 00:24 Body Mass Index 34.95 (95.25 kg, 165.10 cm) bb MDM: 00:33 Patient medically screened. tw4 06:39 Differential diagnosis: obstructed airway, tracheal injury. Data reviewed: vital signs, tw4 nurses notes. Data interpreted: Pulse oximetry: Interpretation: normal. Counseling: I had a detailed discussion with the patient and/or guardian regarding: the historical points, exam findings, and any diagnostic results supporting the discharge/admit diagnosis. Special discussion: I discussed with the patient/guardian in detail that at this point there is no indication for admission to the hospital. It is understood, however, that if the symptoms persist or worsen the patient needs to return immediately for re-evaluation. 01/20 00:26 Order name: COVID-19 : Document "Date of Symptom Onset" if Symptomatic. tw4 Administered Medications: No medications were administered Disposition: 01/20/21 00:33 Discharged to Home. Impression: Viral infection, unspecified, Nausea. - Condition is Stable. - Discharge Instructions: Nausea, Adult, Viral Respiratory Infection. - Prescriptions for Zofran 4 mg Oral Tablet - take 1 tablet by ORAL route every 12 hours As needed; 6 tablet. - Medication Reconciliation Form, Thank You Letter, Antibiotic Education, Prescription Opioid Use form. - Follow up: Private Physician; When: Upon discharge from the Emergency Department; Reason: Recheck today's complaints, Continuance of care, Re-evaluation by your physician. - Problem is new. - Symptoms have improved. Signatures: Dispatcher [employer] EDJacinta Ventura RN RN Dhaval Whitman MD MD tw4 Corrections: (The following items were deleted from the chart) 00:34 00:33 01/20/2021 00:33 Discharged to Home. Impression: Viral infection, unspecified. tw4 Condition is Stable. Forms are Medication Reconciliation Form, Thank You Letter, Antibiotic Education, Prescription Opioid Use. Follow up: Private Physician; When: Upon discharge from the Emergency Department; Reason: Recheck today's complaints, Continuance of care, Re-evaluation by your physician. Problem is new. Symptoms have improved. tw4 00:40 00:34 01/20/2021 00:33 Discharged to Home. Impression: Viral infection, unspecified; bb Nausea. Condition is Stable. Discharge Instructions: Viral Respiratory Infection. Prescriptions for Zofran 4 mg Oral Tablet - take 1 tablet by ORAL route every 12 hours As needed; 6 tablet. and Forms are Medication Reconciliation Form, Thank You Letter, Antibiotic Education, Prescription Opioid Use. Follow up: Private Physician; When: Upon discharge from the Emergency Department; Reason: Recheck today's complaints, Continuance of care, Re-evaluation by your physician. Problem is new. Symptoms have improved. tw4
== END 2021-01-20 00:40 | disposition home or self-care (01) ==
LOC: ER 00:01
DX: B34.9 Viral infection, unspecified (principal); Z20.822 Contact with and (suspected) exposure to COVID-19; R11.0 Nausea; Z91.040 Latex allergy status; Z91.048 Other nonmedicinal substance allergy status
CPT/HCPCS: 99282; U0003

== ENCOUNTER 2021-02-04 01:04 | Emergency (ER) | payer BC ==
--- OUTSIDE RECORDS SUMMARY | 2021-02-04 01:07 | XMS REPORT | Continuity of Care Document ---
:1990 Author Organization [facility] t Address [address] [place] [address] Care Team Providers Name Role Phone PARRIS [...] nivers optic optic ity of neuritis neuritis [place] [facility] Vitamin D Vitamin D Problem Active Uni vers deficiency deficiency it y of [place] [facility] Right Right Problem Active Univers facial facial ity of numbness numbness [place] [facility] Multiple Multiple Problem Active Unive rs sclerosis sclerosis ity of [place] [facility] High risk High risk Problem Active Uni vers medication medication it y of use use [place] [facility] Keloid Keloid Problem Active Univers ity of [place] [facility] Vertigo Vertigo Problem Active [facility] [place] [facility] Ingrowing Ingrowing Problem Active Uni vers toenail toenail ity of [place] [facility] Paronychia Paronychia Problem Active U [...] Mother Family history of [facility] [place] asthma Physicians Father Family history of [facility] [place] hypertension Physicians Social History Smoking Status Start Date Stop Date Source Never smoked tobacco (finding) [facility] [place] [facility] Medications Ordered Filled Start Stop Current [...] ity of Subcutaneou Subcutaneou 00:00: Mon, Wed, [place] [facility] Solution s Solution 00 and Fri (3 Physici Prefilled Prefilled days/week) ans Syringe Syringe Vital Signs Vital Name Observation Time Observation Value Comments Source Systolic blood 2020-09-10 110 mm[Hg] [facility] pressure 14:12:00 [place] [facility] Diastolic blood 2020-09-10 69 mm[Hg] [place] [facility] pressure 14:12:00 [place] [facility] Weight 2020-09-10 198 [lb_av] [facility] 14:12: [place] [facility] Body mass index 2020-09-10 32.95 kg/m2 [place] o f (BMI) [Ratio] 14:12:00 [place] [facility] Heart Rate 2020-09-10 89 /min [facility] 14:12:00 [place] [facility] Body height 2020-02-05 65 [in_us] [facility] 08:59:00 [place] [facility] Weight 2020-02-05 196 [lb_av] [facility] 08:59:00 [place] [facility] Body mass index 2020-02-05 32.62 kg/m2 [place] o f (BMI) [Ratio] 08:59:00 [place] [facility] BP Systolic 2019-12-26 120 mm[Hg] [facility] 09:21:00 [place] [facility] BP Diastolic 2019-12-26 83 mm[Hg] [facility] 09:21:00 [place] [facility] Height 2019-12-26 65 [in_us] [facility] 09:21:00 [place] [facility] Weight 2019-12-26 192 [lb_av] [facility] 09:21:00 [place] [facility] Body Mass Index 2019-12-26 31.95 kg/m2 [facility] o f Calculated 09:21:00 [place] [facility] Heart Rate 2019-12-26 86 /min [facility] 09:21:00 [place] [facility] BP Systolic 2019-12-03 117 mm[Hg] Location: [facility] 11:02:00 Position: [place] [facility] Sitting BP Diastolic 2019-12-03 80 mm[Hg] Location: [facility] 11:02:00 Position: [place] [facility] Sitting Height 2019-12-03 65 [in_us] [facility] 11:02:00 [place] [facility] Weight 2019-12-03 196.5 [lb_av] [facility] 11:02:00 [place] [facility] Body Mass Index 2019-12-03 32.7 kg/m2 [facility] o f Calculated 11:02:00 [place] [facility] Temperature 2019-12-03 97.9 [degF] Method: Oral [facility] 11:02:00 [place] [facility] Heart Rate 2019-12-03 77 /min Quality: Normal [facility] o f 11:02:00 [place] [facility] BP Systolic 2019-09-17 115 mm[Hg] [facility] 13:12:00 Position: [place] [facility] Sitting BP Diastolic 2019-09-17 77 mm[Hg] [facility] 13:12:00 Position: [place] [facility] Sitting Height 2019-09-17 65 [in_us] [facility] 13:12:00 [place] [facility] Weight 2019-09-17 194.375 [lb_av] [facility] o f 13:12:00 [place] [facility] Body Mass Index 2019-09-17 32.35 kg/m2 [facility] o f Calculated 13:12:00 [place] [facility] Temperature 2019-09-17 98.2 [degF] Method: Oral [facility] 13:12:00 [place] [facility] Heart Rate 2019-09-17 77 /min Location: [facility] 13:12:00 Brachial [place] [facility] Artery; Procedures Procedure Date / Time Performing Clinician Source Performed [QLH] CBC (INCLUDES 2019-12-26 00:00:00 [facility] DIFF/PLT) Physicians [QLH] CMP W/EGFR 2019-12-26 00:00:00 [facility] Physicians [QLH] HEPATITIS PANEL 2019-12-26 00:00:00 [facility] Physicians [QLH] HEPATITIS B CORE AB 2019-12-26 00:00[facility] [QLH[facility] VITAMIN D, 2019-12-03 00:00:00 [facility] 25-HYDROXY, LC/MS/MS Physicians [L] Stratify ABHINAV(TM) Ab 2019-12-03 00:00:00 [facility] w/Reflex Physicians [L] NMO IgG 2019-12-03 00:00:00 [place] [facility] f [place] Autoantibodies Physicians MRI Brain w/wo contrast 2019-10-14 00:00:00 [facility] [id number] Physicians [QLH] CBC (INCLUDES 2019-09-17 00:00:00 [facility] DIFF/PLT) Physicians [QLH] CMP W/EGFR 2019-09-17 00:00:00 [facility] Physicians [QLH] VITAMIN D, 2019-09-17 00:00:00 [facility] 25-HYDROXY, LC/MS/MS Physicians MRI Brain w/wo contrast 2019-09-17 00:00:00 [facility] [id number] Physicians MRI Spine cervical w/wo 2019-09-17 00:00:00 [facility] contrast [id number] Physicians MRI Spine thoracic w/wo 2019-09-17 00:00:00 [facility] contrast [id number] Physicians History of Dilation And [facility] Curettage Of Cervical Physicians Stump Plan of Care Planned Activity Planned Date Details Comments Source Future Appointment 2021-03-11 Lei BREWSTER. [facility] 11:30:00 Kameron VICK Encounters Start End Encounter Admission Attending Care Care Encounter Source Date/Time Date/Time Type Type Clinicians Facility Department ID 2020-09-10 2020-09-10 Appointmen LUCILLE NYE Orthopedics [id number] [facility] 14:00:00 14:00:00 tJOHN PIERSON, - [place] it[place] of CÉSAR LOPEZ [address] DPM Physici ans 2020-09-10 2020-09-10 Appointsang ADKINS Neurology - [id number] Univers 13:00:00 13:00:00 t; , Dana BREWSTER M.D. [facility] NARCISA Jeffries [facility] ci MKaren ans 2020-09-10 2020-09-10 Appointmen LUCILLE GOMEZ [facility] [id number] Univers 08:30:00 08:30:00 t; MARCI GOMEZ M.D. ity Dana COVARRUBIAS M.D. Physici ans 2020-09-10 2020-09-10 Refill Adwoa Miranda [facility] [id number] 00:00:00 00:00:00 [place] [id number] [place] [id number] Professio [phone] [address] 2020-09-09 2020-09-09 Telephone Adwoa Miranda [facility] [id number] 00:00:00 00:00:00 [place] [id number] [place] [id number] Professio [phone] [address] 2020-06-12 2020-06-12 Orders Doctor DELLA [id number] 00:00:00 00:00:00 Only Unassigned, [id number] [id number] 2020-05-17 2020-05-17 Orders Doctor DELLA [id number] 00:00:00 00:00:00 Only Unassigned, ÓSCAR [id number] [facility] [phone] [id number] 2020-02-05 2020-02-05 Appointmen NICANOR [facility] Neurology - [id number] Univers 09:00:00 09:00:00 t; , Dana BREWSTER M.D. [facility] NARCISA [facility] ci MKaren ans 2019-12-26 2019-12-26 Appointmen NICANOR [facility] Neurology - [id number] Univers 09:00:00 09:00:00 t; , [facility] ans 2019-12-03 2019-12-03 AppointLUCILLE Dc Neurology - [id number] [facility] 10:30:00 10:30:00 t; LUDMILA HANDLEY [place] K[place]STIN, M.D. [facility] John Drewsey Physic ans 2019-09-17 2019-09-17 AppointLUCILLE Dc Multispecia [id number] [facility] 13:00:00 13:00:00 t; LUDMILA HANDLEY, y - ity John KE[facility] Physici ans 2019-08-15 2019-08-15 Letter Geronimo [facility] [id number] 00:00:00 00:00:00 (Out) Hunter Chris [id number] [place] [id number] Professio [phone] [address] Results Test Description Test Time Test Comments Results Result Comments Source [[facility]] CBC (INCLUDES DIFF/PLT) 2019-12-26 18:28:01 Test Item Value Reference Range Interpretation Comme nts WBC (test code = 6690-2) 4.0 {K/CMM} 3.7-10.4 RBC (test code = 789-8) 5.17 {M/CMM} 4.20-5.40 Hgb (test code = 718-7) 14.3 g/dl 12.0-16.0 Hct (test code = 83484-0) 43.9 % 36.0-48.0 MCV (test code = 787-2) 84.9 fL 80.0-98.0 MCH (test code = 785-6) 27.7 pg 27.0-31.0 MCHC (test code = 786-4) 32.6 g/dl 32.0-36.0 RDW (test code = 788-0) 14.0 % 11.5-14.5 Platelet (test code = 28712-0) 228 {K/CMM} 133-450 Mean Platelet Volume (test code = 02105-0) 10.2 fL 7.4-10.4 [facility] Physicians[QL] [id number] 18:28:01 Test Item Value Reference Range Interpretation Comments Segmented Neutrophils (test code 47.4 % 45.0-75.0 = 00090-9) Monocytes (test code = 88033-2) 7.1 % 2.0-12.0 Lymphocytes; Above High Threshold 42.8 % 20.0-40.0 (test code = 74735-7) Eosinophils (test code = 31297-3) 2.0 % 0.0-4.0 Basophils (test code = 706-2) 0.7 % 0.0-1.0 Segs-Bands # (test code = 1.9 {K/CMM} 1.5-8.1 73181-1) Lymphocytes # (test code = 1.7 {K/CMM} 1.0-5.5 97006-1) Monocytes # (test code = 74539-4) 0.3 {K/CMM} 0.0-0.8 Eosinophils # (test code = 0.1 {K/CMM} 0.0-0.5 58357-7) [facility] Physicians[[facility]] CMP [id number] 18:28:01 Test Item Value Reference Range Interpretation Comments Sodium Level 143 {mEq/l} 135-145 (test code = 2951-2) Potassium Level 4.7 {mEq/l} 3.5-5.1 (test code = 2823-3) Chloride Level 108 {mEq/l} 95-109 (test code = 5-0) Carbon Dioxide 28 {mEq/l} 24-32 (test code = 2027-9) AGAP (test code = 11.7 {mEq/l} 10.0-20.0 78573-8) Glucose Lvl (test 72 mg/dl 70-99 Adult refe rence range code = 2345-7) values reflec t the clinical guidel inesof the [place] Diabet es Association. Creatinine Lvl 0.80 mg/dl 0.50-1.40 (test code = 2160-0) Blood Urea 11 mg/dl 7-22 Nitrogen (test code = 3094-0) BUN/Creatinine 14 6-25 Ratio (test code = 3097-3) Total Protein 7.0 g/dl 6.4-8.4 (test code = 2885-2) Albumin Lvl (test 3.8 g/dl 3.5-5.0 code = 1751-7) Globulin (test 3.2 g/dl 2.7-4.2 code = 35856-5) A/G Ratio (test 1.2 0.7-1.6 code = 1759-0) Calcium Level 9.2 mg/dl 8.5-10.5 Total (test code = 19574-5) ALT (test code = 19 u/l 0-65 1743-4) AST (test code = 13 u/l 0-37 63514-6) Alk Phos (test 58 u/l 39-136 The pediatric reference code = 1783-0) ranges for th is test represent a CLSI-basedtrans ference of the CALIPER mani abase of pediatric refer ence intervals to eSiemens [place] analyzer (Clinical Biochemistry 46 (2013): 3814-3542). [facility] [employer] [facility] has not internally validated these reference ranges and therefore they should be used only in th e context of a thoroughcl inical assessment. Bili Total (test 0.6 mg/dl 0.2-1.3 code = 1975-2) eGFR (test code = 101 The eGFR i s calculated 31877-7) {ML/MIN/1.7} using the CKD-E PI formula. In [...] multiplied by t he estimated BMI. [facility][QL] HEPATITIS [id number] 18:28:01 Test Item Value Reference Range Interpretation Comments Hepatitis B Surface Antigen (test Negative Negative code = 5195-3) Hepatitis B Core IgM (test code = Negative Negative 86036-5) Hepatitis C Antibody (test code = Negative Negative 28370-4) Hepatitis A IgM (test code = Negative Negative 08691-2) [facility]] HEPATITIS B CORE AB [id number] 18:28:01 Test Item Value Reference Range Interpretation Comments Hepatitis B Core Antibody (test code Negative Negative = 59996-2) [facility] [id number] 07:28:00Spine cervical w/wo contrast MRI 10/01/2019 7:28 [...] cervical spinal cord demyelination plaqu es compared [id number]. No mass effect or abnormal enhancement.2. Spinal cord volume at lower limits of normal for age.3. 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 Noabnormal enhancement.--Read by: Richi Gamez MDDictated Date/time: 10/01/19 08:53Electronically Signed by: Richi Gamez MD 10/01/1909:03FINAL REPORTUnJordan Valley Medical Center [facility]] CMP [id number] 10:50:00 Test Item Value Reference Range Interpretation Comments Glucose (test code = 2345-7) 89 mg/dL 65-99 BUN (test code = 3094-0) 13 mg/dL 6-20 Creatinine (test code = 0.87 mg/dL 0.57-1.00 2160-0) eGFR If NonAfricn Am (test 92 mL/min/1.7 >59 code = 40751-9) eGFR If Africn Am (test code = 106 mL/min/1.7 >59 51227-3) BUN/Creatinine Ratio (test 15 - code = 3097-3) Sodium, Serum (test code = 143 mmol/L 152-660 3330-2) Potassium (test code = 2823-3) 4.4 mmol/L 3.5-5.2 Chloride (test code = 2075-0) 106 mmol/L 96-106 Carbon Dioxide, Total (test 24 mmol/L 20-29 code = 8-9) Calcium, Serum (test code = 9.2 mg/dL 8.7-10.2 68740-4) Protein, Total (test code = 6.5 g/dL 6.0-8.5 2885-2) Albumin (test code = 1751-7) 4.1 g/dL 3.5-5.5 Globalulin, Total (test code = 2.4 g/dL 1.5-4.5 64180-3) A/G Ratio (test code = 1759-0) 1.7 1.2-2.2 Bilirubin, Total (test code = 0.4 mg/dL 0.0-1.2 1975-2) Alkaline Phosphatase (test 51 {IU/L} 39-117 code = 6768-6) AST (SGOT) (test code = 12 {IU/L} 0-40 1920-8) ALT (SGPT) (test code = 12 {IU/L} 0-32 1742-6) [facility]] CBC (INCLUDES DIFF/PLT)2019-09-23 10:50:00 Test Item Value [...] (test 0 % Not Estab. code = 35911-6) Immature Grans (Abs) (test 0.0 {x10E3/uL} 0.0-0.1 code = 79759-6) NRBC (test code = 00126-6) See Comment Hematology Comments: (test See Comment code = 44973-0) [facility]] VITAMIN D, 25-HYDROXY, LC/MS/[id number] 10:50:00 Test Item Value Reference Range Interpretation Comments Vitamin D, 21.0 ng/mL 30.0-100.0 Vitamin D defic iency has 25-Hydroxy; Below been defin ed by the Low Threshold (test Institut e ofMedicine and code = 44251-8) an Endocrine Society practice guidel ine as alevel of serum 25-OH vitamin D less than 20 ng/mL (1,2).The Endocrine Socie ty went on to further d efine vitamin Dinsuff iciency as a level betw een 21 and 29 ng/mL (2 ).1. IOM ([place] edicine). 2010. Dietary r eference intakes for ca lcium and D. Christie D C: The National [employer] Vino ies Press.2. Martha MF, Ivonne NC, Belkis guy LOWRY, et al. Evaluatio n, treatment, and prevention of v itamin D deficiency: an Endocrine Socie ty clinical practi ce guideline. JCEM . 2010; 96(7):1911 -30. [facility]
[2021-02-04] MEDS ORDERED: ACETAMINOPHEN 500 MG TAB ONE (01:59)
[2021-02-04] MEDS ORDERED: NA CHLORIDE 0.9% 1,000 ML ONE (01:59)
[2021-02-04 02:28] LABS: Protime INR 1.09
[2021-02-04 02:34] LABS: Absolute Lymphocytes (CBC) 0.6 K/uL (0.7-4.9); Basophils % 0.5 % (0-1.3); Hematocrit 45.1 % (36.0-45.0); Lymphocytes % 16.4 % (15.3-44.8); MPV 10.5 fL (7.6-11.3); RBC Red Blood Cell Count 5.47 M/uL (3.86-4.86)
[2021-02-04 03:00] LABS: ALT/SGPT 35 U/L (12-78); Albumin 3.6 g/dL (3.4-5.0); Alkaline Phosphatase 76 U/L (45-117); BUN Blood Urea Nitrogen 8 mg/dL (7-18); Bicarbonate 28 mmol/L (21-32); Bilirubin Direct 0.1 mg/dL (0-0.2); Bilirubin Total 0.3 mg/dL (0.2-1.0); Glucose Level 101 mg/dL (74-106); Lipase 135 U/L (73-393); Protein, Total 7.4 g/dL (6.4-8.2); Sodium Level 140 mmol/L (136-145); Troponin (Emerg Dept Use Only) < 0.02 ng/mL (0.0-0.045)
[2021-02-04 03:02] LABS: AST/SGOT 27 U/L (15-37); NT PRO-BNP < 5 pg/mL (<125); Potassium 3.7 mmol/L (3.5-5.1)
[2021-02-04 03:57] LABS: Blood Morphology Comment NOT SEEN (NOT SEEN); Platelet Estimate ADEQ
--- NOTE | 2021-02-04 04:23 | ER ---
Nurse's Notes [facility] Name: Brigida Corral Age: 30 yrs Sex: Female : 1990 Arrival Date: 02/04/2021 Time: 01:06 Bed 16 Private MD: Diagnosis: Coronavirus infection, unspecified;Dyspnea, unspecified Presentation: 02/04 01:14 Chief complaint: Patient states: fever and SOB x 2 days. Coronavirus screen: Client ss denies travel out of the [place] in the last 14 days. Client presents with at least one sign or symptom that may indicate coronavirus-19. Standard/surgical mask placed on the client. Provider contacted for isolation considerations. Ebola Screen: Patient denies exposure to infectious person. Patient denies travel to an Ebola-affected area in the 21 days before illness onset. Initial Sepsis Screen: Does the patient meet any 2 criteria? Temp <36.0*C (96.8*F)) or > 38.3*C (100.9*F). HR > 90 bpm. Does the patient have a suspected source of infection? No. Patient's initial sepsis screen is negative. Risk Assessment: Do you want to hurt yourself or someone else? Patient reports no desire to harm self or others. Onset of symptoms was February 03, 2021. 01:14 Method Of Arrival: Ambulatory ss 01:14 Acuity: RUMA 3 ss Triage Assessment: 01:15 Respiratory: Onset: The symptoms/episode began/occurred gradually, the patient has mild sf shortness of breath. Historical: - Allergies: 01:18 Latex, Natural Rubber; ss - Home Meds: 01:35 Ortho-Cyclen (28) 0.25-35 mg-mcg oral tab 1 tab once daily for Contraception sf [Active]; ocrevus 600 mg 1 infusion every 6 months for MS [Active]; - PMHx: 01:18 Multiple Sclerosis; ss - PSHx: 01:18 Tonsillectomy; ss - Immunization history:: Adult Immunizations up to date. - Social history:: Smoking status: Patient denies any tobacco usage or history of. Patient uses alcohol, but reports only rare drinking. Patient/guardian denies using street drugs, IV drugs. Screenin:15 Abuse screen: Denies threats or abuse. Denies injuries from another. Nutritional sf screening: No deficits noted. Tuberculosis screening: No symptoms or risk factors identified. Never had TB. Possible symptoms: None Risk factors: None. Fall Risk No fall in past 12 months (0 pts). Secondary diagnosis (15 points) MS. IV access (20 points). Ambulatory Aid- None/Bed Rest/Nurse Assist (0 pts). Gait- Normal/Bed Rest/Wheelchair (0 pts) Mental Status- Oriented to own ability (0 pts). Total Franklin Fall Scale indicates Low Risk Score (25-44 pts). Fall prevention measures have been instituted. Side Rails Up X 2 Placed close to Nursing Station As available Patient and Family Educated on Fall Prevention Program and strategies. Assessment: 01:15 General: Appears in no apparent distress. comfortable, Behavior is calm, cooperative, sf appropriate for age, Reports fever for 0-12 hours, feeling ill for 2-3 days. Pain: Complains of pain in chest Pain currently is 8 out of 10 on a pain scale. Aggravated by deep breathing and cough. Neuro: No deficits noted. Level of Consciousness is awake, alert, obeys commands, Oriented to person, place, time, situation, Appropriate for age. Cardiovascular: Reports chest pain, shortness of breath, Denies lightheadedness, palpitations, syncope, Patient's skin is warm and dry. Rhythm is sinus tachycardia. Respiratory: Reports shortness of breath at rest cough that is non-productive, pain with cough pain with respiration Airway is patent Respiratory effort is even, unlabored, Respiratory pattern is regular, symmetrical. GI: No signs and/or symptoms were reported involving the gastrointestinal system. : No signs and/or symptoms were reported regarding the genitourinary system. 04:00 Reassessment: Patient appears in no apparent distress at this time. Patient and/or sf family updated on plan of care and expected duration. Pain level reassessed. Patient is alert, oriented x 3, equal unlabored respirations, skin warm/dry/pink. Patient states feeling better. Patient states symptoms have improved. Vital Signs: 01:14 BP 126 / 91; Pulse 130; Resp 18; Temp 101.4(O); Pulse Ox 100% ; Weight 95.25 kg; Height ss 5 ft. 5 in. (165.10 cm); Pain 8/10; 01:22 BP 127 / 83; Pulse 125; Resp 18; sf 01:30 BP 144 / 90; Pulse 120; Resp 18; sf 02:00 BP 134 / 84; Pulse 122; sf 03:00 BP 125 / 84; Pulse 111; sf 04:00 BP 128 / 78; Pulse 102; Resp 16; Temp 99.1; Pulse Ox 98% on R/A; sf 01:14 Body Mass Index 34.95 (95.25 kg, 165.10 cm) Vitals: 04:00 Cardiac Rhythm Assessment Sinus rhythm. ED Course: 01:06 Patient arrived in ED. am4 01:15 Jose Antonio Zarate, RN is Primary Nurse. sf 01:17 Triage completed. ss 01:18 Arm band placed on right wrist. ss 01:19 Patient has correct armband on for positive identification. Placed in gown. Bed in low sf position. Call light in reach. Side rails up X 1. parole hearing officer on. Pulse ox on. NIBP on. Door closed. Noise minimized. Visitors limited. Lights dimmed. Moved to private room. Warm blanket given. Verbal reassurance given. 01:30 Dhaval Gerard MD is Attending Physician. tw4 01:39 CXR XRAY Sent. sf 01:39 X-ray(s) taken. sf 02:00 Initial lab(s) drawn, by de, sent to lab. First set of blood cultures drawn by de, COVID swab sent to lab. Inserted saline lock: 20 gauge in left antecubital area, using aseptic technique. Blood collected. 02:09 COVID-19 : Document "Date of Symptom Onset" if Symptomatic. Sent. sf 02:16 EKG done, by ED staff, reviewed by Dhaval Gerard MD. sf 02:20 Second set of blood cultures drawn by de. Inserted saline lock: 20 gauge in right sf antecubital area, using aseptic technique. Blood collected. 04:13 Blood Culture Adult (2) Sent. sf 04:13 BMP Sent. sf 04:13 CBC with Diff Sent. sf 04:13 Hepatic Function Sent. sf 04:13 Lipase Sent. sf 04:13 Magnesium Sent. sf 04:13 NT PRO-BNP Sent. sf 04:13 PT-INR Sent. sf 04:13 Troponin (emerg Dept Use Only) Sent. sf 04:33 No provider procedures requiring assistance completed. IV discontinued, intact, sf bleeding controlled, No redness/swelling at site. Pressure dressing applied, both IVs, left AC and right AC. Administered Medications: 01:50 Drug: Tylenol 1000 mg Route: PO; sf 04:00 Follow up: Response: No adverse reaction; Temperature is decreased sf 02:00 Drug: NS 0.9% 1000 ml Route: IV; Rate: 1 bolus; Site: left antecubital; sf 04:00 Follow up: Response: No adverse reaction; IV Status: Completed infusion; IV Intake: sf 1000ml Intake: 04:00 IV: 1000ml; Total: 1000ml. sf Outcome: 04:22 Discharge ordered by MD. miller 04:33 Discharged to home ambulatory. sf 04:33 Condition: good 04:33 Discharge instructions given to patient, Instructed on discharge instructions, follow up and referral plans. medication usage, Demonstrated understanding of instructions, follow-up care, medications, Prescriptions given X 3. 04:35 Patient left the ED. sf Signatures: Oly Castanon RN RN Dhaval Gerard MD MD tw4 Geena Hunt Jose Antonio Perdue RN RN
--- NOTE | 2021-02-04 04:23 | EDPHYS ---
Physician Documentation [facility] [place], [place] Name: Brigida Corral Age: 30 yrs Sex: Female : 1990 Arrival Date: 02/04/2021 Time: 01:06 Bed 16 Private MD: ED Physician Dhaval Gerard HPI: 02/04 04:58 This 30 yrs old Black Female presents to ER via Ambulatory with complaints of Shortness tw4 Of Breath, Fever. 04:58 The patient has shortness of breath at rest. Onset: The symptoms/episode began/occurred tw4 3 day(s) ago. Duration: The symptoms are continuous, and are unchanged since they started. The patient's shortness of breath is aggravated by exertion, is alleviated by rest. Associated signs and symptoms: The patient has no apparent associated signs or symptoms. Severity of symptoms: At their worst the symptoms were moderate in the emergency department the symptoms are unchanged. The patient has not experienced similar symptoms in the past. Historical: - Allergies: 01:18 Latex, Natural Rubber; ss - Home Meds: 01:35 Ortho-Cyclen (28) 0.25-35 mg-mcg oral tab 1 tab once daily for Contraception sf [Active]; ocrevus 600 mg 1 infusion every 6 months for MS [Active]; - PMHx: 01:18 Multiple Sclerosis; ss - PSHx: 01:18 Tonsillectomy; ss - Immunization history:: Adult Immunizations up to date. - Social history:: Smoking status: Patient denies any tobacco usage or history of. Patient uses alcohol, but reports only rare drinking. Patient/guardian denies using street drugs, IV drugs. ROS: 04:58 Constitutional: Negative for fever, chills, and weight loss, Eyes: Negative for injury, tw4 pain, redness, and discharge, Cardiovascular: Negative for chest pain, palpitations, and edema, Abdomen/GI: Negative for abdominal pain, nausea, vomiting, diarrhea, and constipation, Back: Negative for injury and pain, MS/Extremity: Negative for injury and deformity, Skin: Negative for injury, rash, and discoloration, Neuro: Negative for headache, weakness, numbness, tingling, and seizure. 04:58 Respiratory: Positive for cough, dyspnea on exertion, wheezing, Negative for hemoptysis, orthopnea, pleurisy, sputum production, wheezing. Exam: 04:58 Constitutional: This is a well developed, well nourished patient who is awake, alert, tw4 and in no acute distress. Head/Face: Normocephalic, atraumatic. Chest/axilla: Normal chest wall appearance and motion. Nontender with no deformity. No lesions are appreciated. Cardiovascular: Regular rate and rhythm with a normal S1 and S2. No gallops, murmurs, or rubs. Normal PMI, no JVD. No pulse deficits. Respiratory: Lungs have equal breath sounds bilaterally, clear to auscultation and percussion. No rales, rhonchi or wheezes noted. No increased work of breathing, no retractions or nasal flaring. Abdomen/GI: Soft, non-tender, with normal bowel sounds. No distension or tympany. No guarding or rebound. No evidence of tenderness throughout. Back: No spinal tenderness. No costovertebral tenderness. Full range of motion. Skin: Warm, dry with normal turgor. Normal color with no rashes, no lesions, and no evidence of cellulitis. MS/ Extremity: Pulses equal, no cyanosis. Neurovascular intact. Full, normal range of motion. Neuro: Awake and alert, GCS 15, oriented to person, place, time, and situation. Cranial nerves II-XII grossly intact. Motor strength 5/5 in all extremities. Sensory grossly intact. Cerebellar exam normal. Normal gait. Vital Signs: 01:14 BP 126 / 91; Pulse 130; Resp 18; Temp 101.4(O); Pulse Ox 100% ; Weight 95.25 kg; Height ss 5 ft. 5 in. (165.10 cm); Pain 8/10; 01:22 BP 127 / 83; Pulse 125; Resp 18; sf 01:30 BP 144 / 90; Pulse 120; Resp 18; sf 02:00 BP 134 / 84; Pulse 122; sf 03:00 BP 125 / 84; Pulse 111; sf 04:00 BP 128 / 78; Pulse 102; Resp 16; Temp 99.1; Pulse Ox 98% on R/A; sf 01:14 Body Mass Index 34.95 (95.25 kg, 165.10 cm) MDM: 01:30 Patient medically screened. tw4 04:58 Antibiotic administration: Not indicated. Data reviewed: vital signs, nurses notes, EMS tw4 record. Data interpreted: Pulse oximetry: Interpretation: normal. Counseling: I had a detailed discussion with the patient and/or guardian regarding: the historical points, exam findings, and any diagnostic results supporting the discharge/admit diagnosis. Special discussion: I discussed with the patient/guardian in detail that at this point there is no indication for admission to the hospital. It is understood, however, that if the symptoms persist or worsen the patient needs to return immediately for re-evaluation. 02/04 01:33 Order name: COVID-19 : Document "Date of Symptom Onset" if Symptomatic. [facility] 02/04 01:33 Order name: Blood Culture Adult (2) [facility] 02/04 01:33 Order name: BMP [facility] 02/04 01:33 Order name: CBC with Diff [facility] 02/04 01:33 Order name: Hepatic Function [facility] 02/04 01:33 Order name: Lipase [facility] 02/04 01:33 Order name: Magnesium [facility] 02/04 01:33 Order name: NT PRO-BNP [facility] 02/04 01:33 Order name: PT-INR [facility] 02/04 01:33 Order name: Ptt, Activated [facility] 02/04 01:33 Order name: Troponin (emerg Dept Use Only) [facility] 02/04 01:33 Order name: Lactate [facility] 02/04 01:33 Order name: Procalcitonin [facility] 02/04 02:25 Order name: [facility] 02/04 01:33 Order name: CXR XRAY [facility] 02/04 02:30 Order name: Protime (+INR); Complete Time: 03: EDRI 02/04 03:02 Interpretation: Within normal limits: PT 12.5. tw4 02/04 02:30 Order name: PTT, Activated Partial Thromb; Complete Time: 03:01 EDRI 02/04 03:01 Interpretation: Within normal limits: PTT 28.2. tw4 02/04 02:42 Order name: CBC with Automated Diff EDRI 02/04 03:01 Interpretation: Normal except: WBC 3.60; RBC 5.47; HCT 45.1. tw4 02/04 02:59 Order name: Procalcitonin; Complete Time: 03:01 EDMS 02/04 03:01 Order name: Lactate; Complete Time: 03:01 EDMS 02/04 03:02 Interpretation: Abnormal: LAC 2.1. tw4 02/04 03:02 Order name: Basic Metabolic Panel; Complete Time: 03:53 EDMS 02/04 03:54 Interpretation: Within normal limits. 02/04 03:02 Order name: Liver (Hepatic) Function; Complete Time: 03:53 EDMS 02/04 03:54 Interpretation: Normal except: GLOB 3.8; A/G 0.9. tw4 02/04 03:02 Order name: Troponin (Emerg Dept Use Only); Complete Time: 03:53 EDMS 02/04 03:54 Interpretation: Within normal limits: TROPED < 0.02. 4 02/04 03:02 Order name: NT PRO-BNP; Complete Time: 03:53 EDMS 02/04 03:54 Interpretation: Within normal limits: NT PRO-BNP < 5. tw02/04 03:02 Order name: Magnesium; Complete Time: 03:53 EDMS 02/04 03:54 Interpretation: Within normal limits: MG 2.0. 02/04 03:02 Order name: Lipase; Complete Time: 03:53 EDMS 02/04 03:55 Interpretation: Within normal limits: LIP 135. 4 02/04 03:38 Order name: SARS-COV-2 RT PCR; Complete Time: 03:53 EDMS 02/04 03:54 Interpretation: Abnormal: SARSCOV2 RT PCR POSITIVE. 02/04 03:58 Order name: Manual Differential EDMS 02/04 01:33 Order name: EKG; Complete Time: 01:34 02/04 01:33 Order name: Cardiac monitoring; Complete Time: 01:37 02/04 01:33 Order name: EKG - Nurse/Tech; Complete Time: 04:13 4 02/04 01:33 Order name: IV Saline Lock; Complete Time: 02:09 4 02/04 01:33 Order name: Labs collected and sent; Complete Time: 02:09 02/04 01:33 Order name: O2 Per Protocol; Complete Time: 01:37 02/04 01:33 Order name: O2 Sat Monitoring; Complete Time: 01:37 tw4 EC:14 Rate is 105 beats/min. Rhythm is regular. QRS [place] is Normal. MO interval is normal. tw4 QRS interval is normal. QT interval is normal. No Q waves. T waves are Normal. No ST changes noted. Clinical impression: Sinus tachycardia. Interpreted by me. Reviewed by me. Administered Medications: 01:50 Drug: Tylenol 1000 mg Route: PO; sf 04:00 Follow up: Response: No adverse reaction; Temperature is decreased sf 02:00 Drug: NS 0.9% 1000 ml Route: IV; Rate: 1 bolus; Site: left antecubital; sf 04:00 Follow up: Response: No adverse reaction; IV Status: Completed infusion; IV Intake: sf 1000ml Disposition: 02/04/21 04:22 Discharged to Home. Impression: Coronavirus infection, unspecified, Dyspnea, unspecified. - Condition is Stable. - Discharge Instructions: Shortness of Breath, Upper Respiratory Infection, Adult, Shortness of Breath, [id number], COVID-19. - Prescriptions for Tessalon Perles 100 mg Oral Capsule - take 1 capsule by ORAL route every 8 hours As needed; 15 capsule. Zithromax Z- Ang 250 mg Oral Tablet - take 1 tablet by ORAL route as directed for 5 days Day 1 - take two (2) tablets one time. Day 2, 3, 4 , 5 take one (1) tablet once daily.; 6 tablet. Albuterol Sulfate 90 mcg/actuation - inhale 1-2 puff by INHALATION route every 4-6 hours; 1 Inhaler. - Medication Reconciliation Form, Thank You Letter, Antibiotic Education, Prescription Opioid Use form. - Follow up: Private Physician; When: Upon discharge from the Emergency Department; Reason: Recheck today's complaints, Continuance of care, Re-evaluation by your physician. - Problem is new. - Symptoms have improved. Signatures: Dispatcher [facility] EDRI Oly Castanon RN RN Dhaval Gerard MD MD tw4 Jose Antonio Zarate RN RN sf Corrections: (The following items were deleted from the chart) 04:35 04:22 02/04/2021 04:22 Discharged to Home. Impression: Coronavirus infection, sf unspecified; Dyspnea, unspecified. Condition is Stable. Forms are Medication Reconciliation Form, Thank You Letter, Antibiotic Education, Prescription Opioid Use. Follow up: Private Physician; When: Upon discharge from the Emergency Department; Reason: Recheck today's complaints, Continuance of care, Re-evaluation by your physician. Problem is new. Symptoms have improved. tw4
[2021-02-04 04:46] VITALS: BP 128/78; TEMP 99.1; O2SAT 98
--- NOTE | 2021-02-04 05:11 | EKG ---
Test Date: 2021-02-04 Test Time: 02:16:43 Ethnoarchaeology Professor: BENJAMIN MEASUREMENT RESULTS: Intervals: Rate: 105 RI: 140 QRSD: 68 QT: 318 QTc: 420 [place]: P: 60 RI: 140 QRS: 28 T: 37 INTERPRETIVE STATEMENTS: Sinus tachycardia Cannot rule out Anterior infarct, age undetermined Abnormal ECG No previous ECG available for comparison Electronically Signed On 02-04-21 05:11:04 SIGNAL TESTER by Rafi Rebolledo
--- NOTE | 2021-02-04 08:22 | RAD REPORT ---
EXAM DESCRIPTION: RAD - Chest Single View - 02/04/2021 1:51 am CLINICAL HISTORY: Cough;SOB, fever COMPARISON: None TECHNIQUE: AP portable chest image was obtained 02/04/2021 1:51 am . FINDINGS: Lung volumes are low. There is respiratory motion degradation as well. Patchy right base o pacification is suspected. There may be minimal left base infiltrate as well. Heart and vasculature a re normal. No measurable pleural effusion and no pneumothorax. No acute bony abnormality seen. No acu te aortic findings suspected. IMPRESSION: Bilateral patchy lung base opacification suspicious for pneumonia. Low lung volumes result in atelectasis and accentuated left base markings. Follow-up exam could be pe rformed as warranted.
== END 2021-02-04 04:35 | disposition home or self-care (01) ==
LOC: ER 01:04
DX: U07.1 COVID-19 (principal); Z91.040 Latex allergy status; Z91.048 Other nonmedicinal substance allergy status
CPT/HCPCS: 93005; 87040 ×2; 85025; 80048; 36415; 83735; 85610; 80076; 83605; 85730; 84484; 83690; 84145; 83880; 71045; U0003; J7030; 96360; 96361; 99285

== ENCOUNTER 2021-02-06 15:33 | Inpatient (IN) | payer BC ==
--- OUTSIDE RECORDS SUMMARY | 2021-02-06 15:36 | XMS REPORT | Continuity of Care Document ---
:1990 Author Organization [facility] t Address [address] [place] [address] Care Team Providers Name Role Phone PARRIS [...] nivers optic optic ity of neuritis neuritis [place] [facility] Vitamin D Vitamin D Problem Active Uni vers deficiency deficiency it y of [place] [facility] Right Right Problem Active Univers facial facial ity of numbness numbness [place] [facility] Multiple Multiple Problem Active Unive rs sclerosis sclerosis ity of [place] [facility] High risk High risk Problem Active Uni vers medication medication it y of use use [place] [facility] Keloid Keloid Problem Active Univers [facility] [place] [facility] Vertigo Vertigo Problem Active Univers [facility] [place] [facility] Ingrowing Ingrowing Problem Active Uni vers toenail toenail ity of [place] [facility] Paronychia Paronychia Problem Active U [...] Mother Family history of Univers ity of [place] asthma Physicians Father Family history of Univers ity of [place] hypertension Physicians Social History Smoking Status Start Date Stop Date Source Never smoked tobacco (finding) U niversity [facility] Physicians Medications Ordered Filled Start Stop Current [...] ity of Subcutaneou Subcutaneou 00:00: Mon, Wed, [place] Solution s Solution 00 and Fri (3 Physici Prefilled Prefilled days/week) ans Syringe Syringe Vital Signs Vital Name Observation Time Observation Value Comments Source Systolic blood 2020-09-10 110 mm[Hg] [facility] pressure 14:12:00 [place] [facility] Diastolic blood 2020-09-10 69 mm[Hg] [place] pressure 14:12:00 [place] [facility] Weight 2020-09-10 198 [lb_av] [facility] 14:12:00 [place] [facility] Body mass index 2020-09-10 32.95 kg/m2 [place] (BMI) [Ratio] 14:12:00 [place] [facility] Heart Rate 2020-09-10 89 /min [facility] 14:12:00 [place] [facility] Body height 2020-02-05 65 [in_us] [facility] 08:59:00 [place] [facility] Weight 2020-02-05 196 [lb_av] [facility] 08:59:00 [place] [facility] Body mass index 2020-02-05 32.62 kg/m2 [place] (BMI) [Ratio] 08:59:00 [place] [facility] BP Systolic 2019-12-26 120 mm[Hg] [facility] 09:21:00 [place] [facility] BP Diastolic 2019-12-26 83 mm[Hg] [facility] 09:21:00 [place] [facility] Height 2019-12-26 65 [in_us] [facility] 09:21:00 [place] [facility] Weight 2019-12-26 192 [lb_av] [facility] 09:21:00 [place] [facility] Body Mass Index 2019-12-26 31.95 kg/m2 University o f Calculated 09:21:00 [place] [facility] Heart Rate 2019-12-26 86 /min [facility] 09:21:00 [place] [facility] BP Systolic 2019-12-03 117 mm[Hg] Location: [facility]; [facility] 11:02:00 Position: [place] [facility] Sitting BP Diastolic 2019-12-03 80 mm[Hg] Location: [facility] 11:02:00 Position: [place] [facility] Sitting Height 2019-12-03 65 [in_us] [facility] 11:02:00 [place] [facility] Weight 2019-12-03 196.5 [lb_av] [facility] 11:02:00 [place] [facility] Body Mass Index 2019-12-03 32.7 kg/m2 University o f Calculated 11:02:00 [place] [facility] Temperature 2019-12-03 97.9 [degF] Method: Oral [facility] 11:02:00 [place] [facility] Heart Rate 2019-12-03 77 /min Quality: Normal [facility] o f 11:02:00 [place] [facility] BP Systolic 2019-09-17 115 mm[Hg] Location: [facility] 13:12:00 Position: [place] [facility] Sitting BP Diastolic 2019-09-17 77 mm[Hg] Location: [facility] 13:12:00 Position: [place] [facility] Sitting Height 2019-09-17 65 [in_us] [facility] 13:12:00 [place] [facility] Weight 2019-09-17 194.375 [lb_av] University o f 13:12:00 [place] [facility] Body Mass Index 2019-09-17 32.35 kg/m2 University o f Calculated 13:12:00 [place] [facility] Temperature 2019-09-17 98.2 [degF] Method: Oral [facility] 13:12:00 [place] [facility] Heart Rate 2019-09-17 77 /min Location: [facility] 13:12:00 Brachial [place] [facility] Artery; Procedures Procedure Date / Time Performing Clinician Source Performed [QLH] CBC (INCLUDES 2019-12-26 00:00:00 [facility] DIFF/PLT) Physicians [QLH] CMP W/EGFR 2019-12-26 00:00:00 [facility] Physicians [QLH] HEPATITIS PANEL 2019-12-26 00:00:00 Univer sity [facility] Physicians [QL] HEPATITIS B CORE AB 2019-12-26 00:00[facility] [QLH] VITAMIN D, 2019-12-03 00:00:00 [facility] 25-HYDROXY, LC/MS/MS Physicians [L] Stratify ABHINAV(TM) Ab 2019-12-03 00:00[facility] [L] NMO IgG 2019-12-03 00:00:00 [place] f [place] Autoantibodies Physicians MRI Brain w/wo contrast 2019-10-14 00:00:00 [facility] [id number] Physicians [QLH] CBC (INCLUDES 2019-09-17 00:00:00 [facility] DIFF/PLT) Physicians [QLH] CMP W/EGFR 2019-09-17 00:00:00 [facility] Physicians [QLH] VITAMIN D, 2019-09-17 00:00:00 [facility] 25-HYDROXY, LC/MS/MS Physicians MRI Brain w/wo contrast 2019-09-17 00:00:00 [facility] [id number] Physicians MRI Spine cervical w/wo 2019-09-17 00:00:00 [facility] contrast 13294 Physicians MRI Spine thoracic w/wo 2019-09-17 00:00:00 [facility] contrast 38414 Physicians History of Dilation And [facility] Curettage Of Cervical Physicians Stump Plan of Care Planned Activity Planned Date Details Comments Source Future Appointment 2021-03-11 John BREWSTER [facility] 11:30:00 Kameron VICK Encounters Start End Encounter Admission Attending Care Care Encounter Source Date/Time Date/Time Type Type Clinicians Facility Department ID 2020-09-10 2020-09-10 AppointLUCILLE Stoddard [facility] [id number] Univers 14:00:00 14:00:00 JOHN Adame, - [place], DPM [address] DPM Physici ans 2020-09-10 2020-09-10 Appointsang ADKINS Neurology - [id number] Univers 13:00:00 13:00:00 t; , Dana BREWSTER M.D. [facility] NARCISA [facility] MKaren [facility] 2020-09-10 2020-09-10 Appointmen LUCILLE GOMEZ [facility] [id number] Univers 08:30:00 08:30:00 t; MARCI GOMEZ M.D. ity of [place], [place] M.D. Physici ans 2020-09-10 2020-09-10 Refill Adwoa Miranda [facility] [id number] 00:00:00 00:00:00 [place] [id number] [place] [id number] Professio [phone] [address] 2020-09-09 2020-09-09 Telephone Adwoa Miranda [facility] [id number] 00:00:00 00:00:00 [place] [id number] [place] [id number] Professio [phone] [address] 2020-06-12 2020-06-12 Orders Doctor DELLA [id number] 00:00:00 00:00:00 Only Unassigned, ÓSCAR [id number] [place] [facility] [id number] [id number] 2020-05-17 2020-05-17 Orders Doctor DELLA [id number] 00:00:00 00:00:00 Only Unassigned, ÓSCAR [id number] [place] [facility] [id number] [id number] 2020-02-05 2020-02-05 Appointmen NICANOR [facility] Neurology - [id number] Univers 09:00:00 09:00:00 t; , Dana BREWSTER M.D., ROHINI, Center Physi ci MKaren ans 2019-12-26 2019-12-26 Appointmen NICANOR [facility] Neurology - [id number] Univers 09:00:00 09:00:00 t; , Dana BREWSTER M.D. [facility] [place] [facility], [facility] 2019-12-03 2019-12-03 Appointmen LUCILLE HANDLEY Neurology - [id number] Univers 10:30:00 10:30:00 t; LUDMILA HANDLEY [place] ity of [place], M.D. [facility] Physic ans 2019-09-17 2019-09-17 Appointmen LUCILLE HANDLEY Mult[facility] [id number] [facility] 13:00:00 13:00:00 t; LUDMILA HANDLEY nestor Yossi M.D. [facility] 2019-08-15 2019-08-15 Letter Geronimo [facility] [id number] 00:00:00 00:00:00 (Out) Hunter Chris [id number] [place] [id number] Professio [phone] [address] Building Results Test Description Test Time Test Comments Results Result Comments Source [QL] CBC (INCLUDES DIFF/PLT) 2019-12-26 18:28:01 Test Item Value Reference Range Interpretation Comme nts WBC (test code = 6690-2) 4.0 {K/CMM} 3.7-10.4 RBC (test code = 789-8) 5.17 {M/CMM} 4.20-5.40 Hgb (test code = 718-7) 14.3 g/dl 12.0-16.0 Hct (test code = 12335-6) 43.9 % 36.0-48.0 MCV (test code = 787-2) 84.9 fL 80.0-98.0 MCH (test code = 785-6) 27.7 pg 27.0-31.0 MCHC (test code = 786-4) 32.6 g/dl 32.0-36.0 RDW (test code = 788-0) 14.0 % 11.5-14.5 Platelet (test code = 78458-3) 228 {K/CMM} 133-450 Mean Platelet Volume (test code = 66042-7) 10.2 fL 7.4-10.4 [facility] Physicians[QL] [id number] 18:28:01 Test Item Value Reference Range Interpretation Comments Segmented Neutrophils (test code 47.4 % 45.0-75.0 = 48442-9) Monocytes (test code = 56560-3) 7.1 % 2.0-12.0 Lymphocytes; Above High Threshold 42.8 % 20.0-40.0 (test code = 92813-9) Eosinophils (test code = 31181-5) 2.0 % 0.0-4.0 Basophils (test code = 706-2) 0.7 % 0.0-1.0 Segs-Bands # (test code = 1.9 {K/CMM} 1.5-8.1 30730-4) Lymphocytes # (test code = 1.7 {K/CMM} 1.0-5.5 78545-0) Monocytes # (test code = 87211-5) 0.3 {K/CMM} 0.0-0.8 Eosinophils # (test code = 0.1 {K/CMM} 0.0-0.5 90408-8) [facility]] CMP [id number] 18:28:01 Test Item Value Reference Range Interpretation Comments Sodium Level 143 {mEq/l} 135-145 (test code = 2951-2) Potassium Level 4.7 {mEq/l} 3.5-5.1 (test code = 2823-3) Chloride Level 108 {mEq/l} 95-109 (test code = 2075-0) Carbon Dioxide 28 {mEq/l} 24-32 (test code = 2027-9) AGAP (test code = 11.7 {mEq/l} 10.0-20.0 01359-5) Glucose Lvl (test 72 mg/dl 70-99 Adult refe rence range code = 2345-7) values reflec t the clinical guidel inesof the [place] Diabet es Association. Creatinine Lvl 0.80 mg/dl 0.50-1.40 (test code = 2160-0) Blood Urea 11 mg/dl 7-22 Nitrogen (test code = 3094-0) BUN/Creatinine 14 6-25 Ratio (test code = 3097-3) Total Protein 7.0 g/dl 6.4-8.4 (test code = 2885-2) Albumin Lvl (test 3.8 g/dl 3.5-5.0 code = 1751-7) Globulin (test 3.2 g/dl 2.7-4.2 code = 73502-8) A/G Ratio (test 1.2 0.7-1.6 code = 1759-0) Calcium Level 9.2 mg/dl 8.5-10.5 Total (test code = 56671-1) ALT (test code = 19 u/l 0-65 1743-4) AST (test code = 13 u/l 0-37 43215-9) Alk Phos (test 58 u/l 39-136 The pediatric reference code = 1783-0) ranges for th is test represent a CLSI-basedtrans ference of the CALIPER mani abase of pediatric refer ence intervals to eSiemens Basalt analyzer (Clinical Biochemistry 46 (2013): 3552-0184). [facility] has not internally validated these reference ranges and therefore they should be used only in th e context of a thoroughcl inical assessment. Bili Total (test 0.6 mg/dl 0.2-1.3 code = 1975-2) eGFR (test code = 101 The eGFR i s calculated 30781-6) {ML/MIN/1.7} using the CKD-E PI formula. In [...] be multiplied by t he estimated BMI. [facility]] HEPATITIS [id number] 18:28:01 Test Item Value Reference Range Interpretation Comments Hepatitis B Surface Antigen (test Negative Negative code = 5195-3) Hepatitis B Core IgM (test code = Negative Negative 31745-0) Hepatitis C Antibody (test code = Negative Negative 62984-5) Hepatitis A IgM (test code = Negative Negative 35678-3) [facility]] HEPATITIS B CORE AB [id number] 18:28:01 Test Item Value Reference Range Interpretation Comments Hepatitis B Core Antibody (test code Negative Negative = 15183-6) [facility] [id number] 07:28:00Spine cervical w/wo contrast MRI 10/01/2019 7:28 [...] cervical spinal cord demyelination plaqu es compared pi1422. No mass effect or abnormal enhancement.2. Spinal cord volume at lower limits of normal for age.3. 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 Noabnormal enhancement.--Read by: Richi Gamez MDDictated Date/time: 10/01/19 08:53Electronically Signed by: Richi Gamez MD 10/01/1909:03[facility]Un[facility]] CMP [id number] 10:50:00 Test Item Value Reference Range Interpretation Comments Glucose (test code = 2345-7) 89 mg/dL 65-99 BUN (test code = 3094-0) 13 mg/dL 6-20 Creatinine (test code = 0.87 mg/dL 0.57-1.00 2160-0) eGFR If NonAfricn Am (test 92 mL/min/1.7 >59 code = 43223-7) eGFR If Africn Am (test code = 106 mL/min/1.7 >59 69028-7) BUN/Creatinine Ratio (test 15 9-23 code = 3097-3) Sodium, Serum (test code = 143 mmol/L 522-885 2729-2) Potassium (test code = 2823-3) 4.4 mmol/L 3.5-5.2 Chloride (test code = 2075-0) 106 mmol/L 96-106 Carbon Dioxide, Total (test 24 mmol/L 20-29 code = 8-9) Calcium, Serum (test code = 9.2 mg/dL 8.7-10.2 34148-9) Protein, Total (test code = 6.5 g/dL 6.0-8.5 2885-2) Albumin (test code = 1751-7) 4.1 g/dL 3.5-5.5 Globalulin, Total (test code = 2.4 g/dL 1.5-4.5 79367-8) A/G Ratio (test code = 1759-0) 1.7 1.2-2.2 Bilirubin, Total (test code = 0.4 mg/dL 0.0-1.2 1975-2) Alkaline Phosphatase (test 51 {IU/L} 39-117 code = 6768-6) AST (SGOT) (test code = 12 {IU/L} 0-40 1920-8) ALT (SGPT) (test code = 12 {IU/L} 0-32 1742-6) [facility]] CBC (INCLUDES DIFF/PLT)2019-09-23 10:50:00 Test Item Value [...] (test 0 % Not Estab. code = 64336-8) Immature Grans (Abs) (test 0.0 {x10E3/uL} 0.0-0.1 code = 87578-2) NRBC (test code = 67401-3) See Comment Hematology Comments: (test See Comment code = 61949-0) [facility]] VITAMIN D, 25-HYDROXY, [id number] 10:50:00 Test Item Value Reference Range Interpretation Comments Vitamin D, 21.0 ng/mL 30.0-100.0 Vitamin D defic iency has 25-Hydroxy; Below been defin ed by the Low Threshold (test Institut e ofMedicine and code = 51017-4) an Endocrine Society practice guidel ine as alevel of serum 25-OH vitamin D less than 20 ng/mL (1,2).The Endocrine Socie ty went on to further d efine vitamin Dinsuff iciency as a level betw een 21 and 29 ng/mL (2 ).1. IOM ([place] ed[place]). 2010. Dietary r eference intakes for ca lcium and D. Christie D C: The National [employer] ies Press.2. Martha VIEIRA, Ivonne TORRES, Belkis guy LOWRY, et al. Evaluatio n, treatment, and prevention of v itamin D deficiency: an Endocrine Socie clinical practi ce guideline. JCEM . 2010; 96(7):1911 -30. [facility] Physicians
[2021-02-06] MEDS ORDERED: NA CHLORIDE 0.9% 1,000 ML ONE (17:01)
[2021-02-06] MEDS ORDERED: dexAMETHasone 10 MG/ML VIAL ONE (17:01)
[2021-02-06] MEDS ORDERED: ACETAMINOPHEN 325 MG TABLET ONE (17:01)
[2021-02-06] MEDS ORDERED: MAGNESIUM SULFATE 1 gm IVPB 1 GM/100 ML BAG IV ONE (17:03)
[2021-02-06 17:15] LABS: Absolute Lymphocytes (CBC) 0.7 K/uL (0.7-4.9); Hematocrit 45.4 % (36.0-45.0); Lymphocytes % 15.2 % (15.3-44.8); MPV 9.7 fL (7.6-11.3)
[2021-02-06 17:20] LABS: Protime INR 1.15
[2021-02-06 17:27] LABS: ALT/SGPT 28 U/L (12-78); AST/SGOT 25 U/L (15-37); Albumin 3.4 g/dL (3.4-5.0); Alkaline Phosphatase 60 U/L (45-117); Amylase 36 U/L (25-115); BUN Blood Urea Nitrogen 7 mg/dL (7-18); Bicarbonate 29 mmol/L (21-32); Bilirubin Direct 0.2 mg/dL (0-0.2); Bilirubin Total 0.7 mg/dL (0.2-1.0); CKMB Creatine Kinase MB < 1.0 ng/mL (0.3-3.6); Creatine Phosphokinase 115 U/L (26-192); Glucose Level 99 mg/dL (74-106); Lipase 60 U/L (73-393); Potassium 3.7 mmol/L (3.5-5.1); Protein, Total 7.8 g/dL (6.4-8.2); Sodium Level 139 mmol/L (136-145); Troponin (Emerg Dept Use Only) < 0.02 ng/mL (0.0-0.045)
--- NOTE | 2021-02-06 17:41 | RAD REPORT ---
EXAM DESCRIPTION: RAD - Chest Single View - 02/06/2021 5:26 pm CLINICAL HISTORY: SOB Chest pain. COMPARISON: Chest Single View dated 02/04/2021 FINDINGS: Portable technique limits examination quality. Mild bilateral pulmonary opacities are present, likely representing viral infection. The findings are slightly more severe on the left. The heart is normal in size. No displaced fractures.
[2021-02-06] MEDS ORDERED: LEVALBUTEROL 1.25 MG/3 ML NEB ONE ×2 (18:47→19:50)
--- NOTE | 2021-02-06 19:35 | RAD REPORT ---
EXAM DESCRIPTION: CT - Chest For Pe Angio - 02/06/2021 7:18 pm CLINICAL HISTORY: Chest pain. SOB, elevated D-dimer COMPARISON: No comparisons TECHNIQUE: CT angiogram of the pulmonary arteries was performed with MIP. All CT scans are performed using dose optimization technique as appropriate and may include automated exposure control or mA/KV adjustment according to patient size. FINDINGS: No evidence of pulmonary thromboembolism. No acute aortic finding demonstrated. Moderate bilateral pulmonary opacities, greatest in lung bases noted most compatible with infection/p neumonia. No significant pericardial or pleural fluid. No concerning bony finding. IMPRESSION: No evidence of pulmonary thromboembolism. Moderate basilar lung consolidation most compatible infection/pneumonia.
[2021-02-06 20:03] LABS: Blood Morphology Comment NOT SEEN (NOT SEEN); Platelet Estimate ADEQ
--- NOTE | 2021-02-06 20:04 | EDPHYS ---
Physician Documentation [facility] Name: Brigida Corral Age: 30 yrs Sex: Female : 1990 Arrival Date: 02/06/2021 Time: 15:35 Bed 28 Private MD: ED Physician Dhaval Gerard HPI: 02/06 16:33 This 30 yrs old Black Female presents to ER via Ambulatory with complaints of Covid+ jmm sob. 16:33 The patient or guardian reports cough, difficulty breathing. Onset: The jmm symptoms/episode began/occurred gradually, 6 day(s) ago. Modifying factors: The symptoms are alleviated by nothing. the symptoms are aggravated by nothing. Associated signs and symptoms: Pertinent positives: diarrhea, fever. The patient has not experienced similar symptoms in the past. The patient has been recently seen by a physician:. Symptoms began this monday. Historical: - Allergies: 15:44 Latex, Natural Rubber; ll1 - PMHx: 15:44 Multiple Sclerosis; ll1 - PSHx: 15:44 Tonsillectomy; ll1 - Immunization history:: Flu vaccine is not up to date. - Social history:: Smoking status: Patient denies any tobacco usage or history of. ROS: 16:33 Constitutional: Positive for body aches, fever. jmm 16:33 Respiratory: Positive for shortness of breath. 16:33 All other systems are negative. Exam: 16:33 Constitutional: This is a well developed, well nourished patient who is awake, alert, jmm and in no acute distress. Head/Face: atraumatic. Eyes: EOMI, no conjunctival erythema appreciated ENT: Moist Mucus Membranes Neck: Trachea midline, Supple Chest/axilla: Normal chest wall appearance and motion. 16:33 Abdomen/GI: Non distended, soft Back: Normal ROM Skin: General appearance color normal MS/ Extremity: Moves all extremities, no obvious deformities appreciated, no edema noted to the lower extremities Neuro: Awake and alert, normal gait Psych: Behavior is normal, Mood is normal, Patient is cooperative and pleasant 16:33 Cardiovascular: Rate: tachycardic, Rhythm: regular. 16:33 Respiratory: mild respiratory distress is noted, Respirations: labored breathing, that is mild, Breath sounds: are clear throughout. Vital Signs: 15:42 BP 137 / 83; Pulse 131; Resp 26; Temp 100.7; Pulse Ox 95% on R/A; Weight 95.25 kg; ll1 Height 5 ft. 5 in. (165.10 cm); Pain 8/10; 15:44 Resp 24; Pulse Ox 98% on 4 lpm NC; ll1 16:30 BP 140 / 79; Pulse 120; Resp 43; Pulse Ox 89% on R/A; bw 17:30 BP 139 / 84; Pulse 119; Resp 40; Pulse Ox 98% on 2 lpm NC; bw 18:30 BP 141 / 85; Pulse 116; Resp 38; Pulse Ox 98% on 2 lpm NC; bw 19:45 BP 124 / 72; Pulse 125; Resp 38; Pulse Ox 97% on 2 lpm NC; jb4 20:45 BP 118 / 69; Pulse 127; Resp 38; Pulse Ox 99% on 4 lpm NC; jb4 15:42 Body Mass Index 34.94 (95.25 kg, 165.10 cm) ll1 MDM: 16:27 Patient medically screened. [facility] 20:03 Data reviewed: vital signs, nurses notes. Counseling: I had a detailed discussion with matt the patient and/or guardian regarding: the historical points, exam findings, and any diagnostic results supporting the discharge/admit diagnosis, lab results, radiology results, the need for further work-up and treatment in the hospital. ED course: I discussed the patient with Moses Dickinson whom accepted the patient to Dr. Loyd service. . 02/06 16:28 Order name: Amylase, Serum [facility] 02/06 16:28 Order name: Basic Metabolic Panel [facility] 02/06 16:28 Order name: Blood Culture Adult (2) [facility] 02/06 16:28 Order name: CBC with Diff [facility] 02/06 16:28 Order name: Ckmb; Complete Time: 20:20 [facility] 02/06 16:28 Order name: CPK; Complete Time: 20:20 [facility] 02/06 16:28 Order name: Lactate; Complete Time: 17:22 [facility] 02/06 16:28 Order name: LFT's; Complete Time: 20:20 [facility] 02/06 16:28 Order name: Lipase; Complete Time: 20:20 [facility] 02/06 16:28 Order name: Procalcitonin; Complete Time: 17:53 [facility] 02/06 16:28 Order name: Protime (+inr); Complete Time: 17:42 [facility] 02/06 16:28 Order name: Ptt, Activated; Complete Time: 17:42 [facility] 02/06 16:28 Order name: Troponin (emerg Dept Use Only); Complete Time: 20:20 [facility] 02/06 16:28 Order name: Urine Microscopic Only [facility] 02/06 16:28 Order name: Chest Single View XRAY; Complete Time: 17:42 [facility] 02/06 16:29 Order name: Amylase; Complete Time: 20:20 [facility] 02/06 16:29 Order name: Basic Metabolic Panel; Complete Time: 20:20 [facility] 02/06 16:29 Order name: Blood Culture [facility] 02/06 16:29 Order name: CBC with Automated Diff; Complete Time: 20:04 [facility] 02/06 16:30 Order name: COVID-19 : Document "Date of Symptom Onset" if Symptomatic. [facility] 02/06 17:48 Order name: D-Dimer; Complete Time: 18:28 [facility] 02/06 18:34 Order name: CT Chest For PE Angio; Complete Time: 19:43 [facility] 02/06 19:50 Order name: C-Reactive Protein; Complete Time: 20:20 [facility] 02/06 20:03 Order name: Manual Differential; Complete Time: 20:04 [facility] 02/07 06:20 Order name: CBC with Automated Diff; Complete Time: 09:21 [facility] 02/07 06:39 Order name: Comprehensive Metabolic Panel; Complete Time: 09:21 [facility] 02/07 06:39 Order name: C-Reactive Protein; Complete Time: 09:21 [facility] 02/07 06:39 Order name: Ferritin; Complete Time: 09:21 [facility] 02/07 07:05 Order name: CBC Smear Scan; Complete Time: 09:21 [facility] 02/06 16:28 Order name: Cardiac monitoring; Complete Time: 17:06 [facility] 02/06 16:28 Order name: EKG - Nurse/Tech; Complete Time: 17:06 [facility] 02/06 16:28 Order name: IV Saline Lock - Large Bore; Complete Time: 17:06 [facility] 02/06 16:28 Order name: Labs collected and sent; Complete Time: 17:06 [facility] 02/06 16:28 Order name: O2 Per Protocol; Complete Time: 17:06 [facility] 02/06 16:28 Order name: O2 Sat Monitoring; Complete Time: 17:06 [facility] 02/06 21:09 Order name: CONS Physician Consult EDRI Administered Medications: 17:14 Drug: Magnesium Sulfate 1 grams Route: IVPB; Infused Over: 1 hrs; Site: right bw antecubital; 17:15 Drug: NS 0.9% 1000 ml Route: IV; Rate: 1 bolus; Site: right antecubital; bw 17:16 Drug: Tylenol 650 mg Route: PO; bw 17:16 Drug: Decadron - Dexamethasone 10 mg Route: IVP; Site: right antecubital; bw 18:39 Drug: Xopenex (3) 1.25 mg Route: Inhalation; bw 20:46 Drug: Ativan 0.5 mg Route: IVP; Site: right antecubital; jb4 Disposition: 02/08 05:14 Co-signature as Attending Physician, Dhaval Gerard MD I agree with the assessment and 4 plan of care. Disposition: 02/06/21 20:04 Hospitalization ordered by Carmelina Colon for Observation. Preliminary diagnosis are Coronavirus infection, unspecified, Acute respiratory distress syndrome. - Bed requested for Telemetry/MedSurg (observation). - Status is Observation. ph - Condition is Stable. - Problem is new. - Symptoms are unchanged. Signatures: Dispatcher [employer] EDRI Emelyn Brownlee Joel, PA PA [facility] Shwetha Barker RN RN Aditya Garcia RN RN [facility] Dhaval Gerard MD MD [facility] [place] Salvador Bray 2 Massiel Marx RN RN [facility] Clary Be RN RN Corrections: (The following items were deleted from the chart) 02/06 19:50 19:46 C-REACTIVE PROTEIN+C.LAB.BRZ ordered. EDRI EDRI 20:16 20:04 Hospitalization Ordered by Carmelina Colon MD for Observation. Preliminary 2 diagnosis is Coronavirus infection, unspecified; Acute respiratory distress syndrome. Bed requested for Telemetry/MedSurg (observation). Status is Observation. Condition is Stable. Problem is new. Symptoms are unchanged. [facility] 02/07 15:26 02/06 20:16 02/06/2021 20:04 Hospitalization Ordered by Carmelina Colon MD for bd Observation. Preliminary diagnosis is Coronavirus infection, unspecified; Acute respiratory distress syndrome. Bed requested for [facility] ER HOLD. Status is Observation. Condition is Stable. Problem is new. Symptoms are unchanged. mw2 02/07 16:10 15:26 02/06/2021 20:04 Hospitalization Ordered by Carmelina Colon MD for Observation. ph Preliminary diagnosis is Coronavirus infection, unspecified; Acute respiratory distress syndrome. Bed requested for Telemetry/MedSurg (observation). Status is Observation. Condition is Stable. Problem is new. Symptoms are unchanged. bd
--- NOTE | 2021-02-06 20:04 | ER ---
Nurse's Notes [facility] Name: Brigida Corral Age: 30 yrs Sex: Female : 1990 Arrival Date: 02/06/2021 Time: 15:35 Bed 28 Private MD: Diagnosis: Coronavirus infection, unspecified;Acute respiratory distress syndrome Presentation: 02/06 15:42 Chief complaint: Patient states: Covid positive since . Cough for 10 days. SOB ll1 began yesterday. + diarrhea and fever. Coronavirus screen: Client denies travel out of the [place] in the last 14 days. congestion, cough unrelated to allergies, difficulty breathing, fever, headache, shortness of breath, Client presents with at least one sign or symptom that may indicate coronavirus-19. Standard/surgical mask placed on the client. Ebola Screen: Patient denies travel to an Ebola-affected area in the 21 days before illness onset. Initial Sepsis Screen: Does the patient meet any 2 criteria? RR > 20 per min. HR > 90 bpm. No. Patient's initial sepsis screen is negative. Does the patient have a suspected source of infection? Yes: Productive cough/pneumonia. Risk Assessment: Do you want to hurt yourself or someone else? Patient reports no desire to harm self or others. Onset of symptoms was January 28, 2021. 15:42 Method Of Arrival: Ambulatory 1 15:42 Acuity: RUMA 3 ll1 Historical: - Allergies: 15:44 Latex, Natural Rubber; ll1 - PMHx: 15:44 Multiple Sclerosis; ll1 - PSHx: 15:44 Tonsillectomy; ll1 - Immunization history:: Flu vaccine is not up to date. - Social history:: Smoking status: Patient denies any tobacco usage or history of. Screenin:30 Abuse screen: Denies threats or abuse. Nutritional screening: No deficits noted. bw Tuberculosis screening: No symptoms or risk factors identified. Fall Risk None identified. Assessment: 16:30 General: Appears distressed, uncomfortable, Behavior is calm, cooperative, appropriate bw for age, anxious. General: Behavior is. Pain: Complains of pain in chest. Neuro: No deficits noted. Cardiovascular: Rhythm is sinus tachycardia. Respiratory: Breath sounds are coarse bilaterally. in left lower lobe, right lower lobe, left posterior lower lobe and right posterior lower lobe. GI: No deficits noted. : No deficits noted. 16:30 Respiratory: Reports shortness of breath cough that is Airway is patent Respiratory bw effort is even, labored, Respiratory pattern is tachypnea. 17:30 Reassessment: No changes from previously documented assessment. bw 18:30 Reassessment: Patient and/or family updated on plan of care and expected duration. Pain bw level reassessed. Patient states symptoms have not improved. 19:27 Reassessment: PT is back from CT. Respirations remain even, labored, and tachypneic. PT jb4 reports feeling better after breathing treatment.. 20:30 Reassessment: No changes from previously documented assessment. Patient and/or family jb4 updated on plan of care and expected duration. Pain level reassessed. Provider updated on pt status. See MAR for orders. 21:30 Reassessment: PT reports feeling more relaxed after ativan administration. Respirations jb4 appear more relaxed. Rate decreased to 24. Even, tachypneic, labored. Oxygen remain 98-100% on 4L NC. Remains A\T\Ox4, mother remains at the bedside. Vital Signs: 15:42 BP 137 / 83; Pulse 131; Resp 26; Temp 100.7; Pulse Ox 95% on R/A; Weight 95.25 kg; ll1 Height 5 ft. 5 in. (165.10 cm); Pain 8/10; 15:44 Resp 24; Pulse Ox 98% on 4 lpm NC; ll1 16:30 BP 140 / 79; Pulse 120; Resp 43; Pulse Ox 89% on R/A; bw 17:30 BP 139 / 84; Pulse 119; Resp 40; Pulse Ox 98% on 2 lpm NC; bw 18:30 BP 141 / 85; Pulse 116; Resp 38; Pulse Ox 98% on 2 lpm NC; bw 19:45 BP 124 / 72; Pulse 125; Resp 38; Pulse Ox 97% on 2 lpm NC; jb4 20:45 BP 118 / 69; Pulse 127; Resp 38; Pulse Ox 99% on 4 lpm NC; jb4 15:42 Body Mass Index 34.94 (95.25 kg, 165.10 cm) ll1 ED Course: 15:35 Patient arrived in ED. ds1 15:44 Triage completed. ll1 15:44 Arm band placed on. ll1 16:10 Jairo Borjas PA is PHCP. [facility] 16:10 Dhaval Gerard MD is Attending Physician. [facility] 16:37 Clary Be, KATERIN is Primary Nurse. bw 16:43 Inserted saline lock: 20 gauge in right antecubital area, using aseptic technique. jp3 Blood collected. 16:43 First set of blood cultures drawn by me. jp3 16:50 Initial lab(s) drawn, by me, sent to lab. EKG done, by ED staff, reviewed by Jairo CHEW. 16:53 Second set of blood cultures drawn by me. jp3 17:17 Amylase, Serum Sent. bw 17:17 Basic Metabolic Panel Sent. bw 17:17 Blood Culture Adult (2) Sent. bw 17:18 CBC with Diff Sent. bw 17:18 Chest Single View XRAY Sent. bw 17:26 Chest Single View XRAY In Process Unspecified. EDMS 18:30 Patient has correct armband on for positive identification. Call light in reach. Side bw rails up X 1. 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 Pulse ox on. NIBP on. Cool cloth applied. 18:30 No provider procedures requiring assistance completed. bw 19:18 CT Chest For PE Angio In Process Unspecified. EDMS 20:03 Carmelina Colon MD is Hospitalizing Provider. [facility] 21:30 Patient admitted, IV remains in place. jb4 Administered Medications: 17:14 Drug: Magnesium Sulfate 1 grams Route: IVPB; Infused Over: 1 hrs; Site: right bw antecubital; 17:15 Drug: NS 0.9% 1000 ml Route: IV; Rate: 1 bolus; Site: right antecubital; bw 17:16 Drug: Tylenol 650 mg Route: PO; bw 17:16 Drug: Decadron - Dexamethasone 10 mg Route: IVP; Site: right antecubital; bw 18:39 Drug: Xopenex (3) 1.25 mg Route: Inhalation; bw 20:46 Drug: Ativan 0.5 mg Route: IVP; Site: right antecubital; jb4 Outcome: 20:04 Decision to Hospitalize by Provider. jmm 21:30 Admitted to ER Hold. Please see [facility] for further documentation. jb4 21:30 Condition: stable 21:30 Discharge instructions given to patient, family, Instructed on the need for admit, Demonstrated understanding of instructions. 02/07 16:10 Patient left the ED. ph Signatures: Dispatcher [employer] EDMS Jairo Borjas PA PA jmm Sanford, Demi ds1 Shwetha Barker, RN RN Aditya Garcia RN RN jb4 Elpidio Lafleur jp3 Massiel Marx RN RN ll1 Clary Be RN RN Corrections: (The following items were deleted from the chart) 02/06 18:46 16:30 BP 140 / 79; Pulse 120bpm; Resp 43bpm; Pulse Ox 89% 2 lpm Nasal Cannula; bw bw 18:50 17:30 Reassessment: Patient and/or family updated on plan of care and expected bw duration. Pain level reassessed. Patient states symptoms have not improved. bw 21:39 15:42 BP 137 / 83; Pulse 131bpm; Resp 22bpm; Pulse Ox 95% RA; Temp 100.7F; 95.25 kg; ll1 Height 5 ft. 5 in.; BMI: 34.9; Pain 8/10; ll1 21:39 15:44 Resp 22bpm; Pulse Ox 98% 4 lpm Nasal Cannula; ll1 ll1
[2021-02-06] MEDS ORDERED: LORazepam 2 MG/ML VIAL ONE (20:55)
--- NOTE | 2021-02-06 21:39 | P.HP ---
Certification for Inpatient Patient admitted to: Inpatient With expected LOS: >2 Midnights Patient will require the following post-hospital care: None Practitioner: I am a practitioner with admitting privileges, knowledge of patient current condition, hospital course, and medical plan of care. Services: Services provided to patient in accordance with Admission requirements found in Title 42 Section 412.3 of the Code of Federal Regulations <Moses Dickinson - Last Filed: 02/06/21 22:16> Patient History Date of Service: 02/06/21 Primary Care Provider: Dr. Beckwith Reason for admission: covid pneumonia History of Present Illness: Ms. Corral is a 30 yo female with multiple sclerosis presenting today with COVID+ test 6 days ago and worsening cough, runny nose, and SOB since Monday. She was seen in the ER Monday and discharged, but now presents with worsening SOB. She reports fever, and diarrhea. Denies nausea and vomiting. She reported mild improvement in cough with tessalon perles. D Dimer 606. Procal 0.06. CT scan showed no evidence of PE and moderate basilar lung consolidation. CXR showed mild bilateral pulmonary opacities, more severe on left. Patient tachycardic to 130, tachypneic to 22-43, initial sats 95% but dropped to 89% on RA, now on 5L O2 via NC. - Past Medical/Surgical History Has patient received pneumonia vaccine in the past: No Diabetic: No -: multiple sclerosis -: tonsillectomy -: eye surgery - Family History Mother Notes: asthma Father -: Hypertension - Social History Smoking Status: Never smoker Alcohol use: No CD- Drugs: No Caffeine use: No Place of Residence: Home <Moses Dickinson - Last Filed: 02/06/21 22:16> Date of Service: 02/06/21 <Carmelina Colon - Last Filed: 02/09/21 04:29> Allergies Latex, Natural Rubber Allergy (Verified 02/07/21 18:56) Itching Home Medications: Albuterol Inhaler [Ventolin Inhaler*] 2 puff IH PRN 02/06/21 Azithromycin [Zithromax] 250 mg PO DAILY 02/06/21 Benzonatate 100 mg PO PRN 02/06/21 Ondansetron [Zofran (Odt)*] 4 mg PO PRN 02/06/21 Review of Systems General: Fever, Weakness, Malaise, As per HPI Eyes: Unremarkable ENT: Nose Congestion, As per HPI Respiratory: Cough, Shortness of Breath, SOB with Excertion, As per HPI Cardiovascular: Unremarkable Gastrointestinal: Diarrhea, As per HPI Genitourinary: Unremarkable Musculoskeletal: Unremarkable Integumentary: Unremarkable Neurological: Unremarkable Lymphatics: Unremarkable <Moses Dickinson - Last Filed: 02/06/21 22:16> Physical Examination - Vital Signs Temperature: 100.7 F Blood Pressure: 137/83 Pulse: 120 Respirations: 43 Pulse Ox (%): 89 - Physical Exam General: Alert, Oriented x3, Cooperative HEENT: Atraumatic, Normocephalic, PERRLA, Mucous membr. moist/pink, EOMI, Sclerae nonicteric Neck: Supple, 2+ carotid pulse no bruit, JVD not distended, No Thyromegaly, No LAD Respiratory: Diminished Cardiovascular: No edema, Normal pulses, Normal S1 S2, No gallops, No rubs, No murmurs, Other (tachycardic) Capillary refill: <2 Seconds Gastrointestinal: Normal bowel sounds, Soft and benign, Non-distended, No ascites, No tenderness, No masses, No rebound, No guarding Musculoskeletal: No clubbing, No swelling, No contractures, No erythema, No tenderness, No warmth Integumentary: No rashes, No breakdown, No significant lesion, No tenderness/swelling, No erythema, No warmth, No cyanosis Neurological: Normal strength at 5/5 x4 extr, Normal tone, Sensation intact, Cranial nerves 3-12 intact, Normal affect Lymphatics: No axilla or inguinal lymphadenopathy - Studies Laboratory Data (last 24 hrs) 02/06/21 16:50: PT 13.3 H, INR 1.15, APTT 29.4 02/06/21 16:50: WBC 4.90 D, Hgb 14.8, Hct 45.4 H, Plt Count 187 02/06/21 16:50: Sodium 139, Potassium 3.7, BUN 7, Creatinine 0.73, Glucose 99, Total Bilirubin 0.7, AST 25, ALT 28, Alkaline Phosphatase 60, Amylase 36, Lipase 60 L <Moses Dickinson - Last Filed: 02/06/21 22:16> Assessment and Plan - Problems (Diagnosis) (1) Pneumonia due to COVID-19 virus Current Visit: Yes Status: Acute Plan: patient received NS, xoponex, and decadron in the ER. will start vitamin D, thiamin, zinc, ascorbic acid, solumedrol, ivermectin albuterol breathing treatments as needed, started remdesvir & will await approval from pulm consulted pulm and respiratory, daily saturations tessalon perles for cough, tylenol for fever, imodium for diarrhea will continue fluid hydration initial procal 0.06, ESR and CRP pending. CT scan did not show PE but given patient's clinical picture will give full dose Lovenox CT and CXR showed moderate basilar lung consolidation patient requesting chauhan catheter because she is too SOB to go to bathroom. refused option to have bedside commode or use nurse assistance to bathroom. discussed risks of catheter at length with patient and her mom. (2) COVID-19 Current Visit: Yes Status: Acute (3) Multiple sclerosis Current Visit: Yes Status: Acute Plan: reconcile and restart home medications. stable. Discharge Plan: Home Plan to discharge in: 72 Hours - Advance Directives Does patient have a Living Will: No Does patient have a Durable POA for Healthcare: No - Code Status/Comfort Care Code Status Assessed: Yes (full code) Critical Care: No Time Spent Managing Pts Care (In Minutes): 70 <Moses Dickinson - Last Filed: 02/06/21 22:16> - Problems (Diagnosis) (1) Pneumonia due to COVID-19 virus Current Visit: Yes Status: Acute (2) Multiple sclerosis Current Visit: Yes Status: Acute <Carmelina Colon - Last Filed: 02/09/21 04:29> Date of Service: 02/07/21 I agree with findings as mentioned above. Continue with aggressive care of COVID-19 . <Carmelina Colon - Last Filed: 02/09/21 04:29>
[2021-02-06] MEDS ORDERED: LOPERAMIDE HCL 2 MG CAPSULE PO PRN ×2 (21:45→22:53)
[2021-02-06 21:59] VITALS: BMI 36.0
[2021-02-06] MEDS ORDERED: MELATONIN 5 MG TABLET PO PRN (22:53)
[2021-02-06] MEDS ORDERED: NA CHLORIDE 0.9% 1,000 ML IV SCH (22:53)
[2021-02-06] MEDS ORDERED: LORazepam 2 MG/ML VIAL IV PRN (22:53)
[2021-02-06] MEDS ORDERED: ONDANSETRON 4 MG/2 ML VIAL IV PRN (22:53)
[2021-02-06] MEDS ORDERED: IVERMECTIN 3 MG TABLET PO SCH (22:53)
[2021-02-07] MEDS: ALBUTEROL 2.5 MG/3 ML NEB SOL NEB SCH ×2 (01:38→08:00)
[2021-02-07] MEDS ORDERED: ALBUTEROL 2.5 MG/3 ML NEB SOL ONE (01:52)
[2021-02-07] MEDS ORDERED: LORazepam 2 MG/ML VIAL ONE (03:45)
[2021-02-07 06:14] LABS: Absolute Lymphocytes (CBC) 0.4 K/uL (0.7-4.9); Basophils % 0.5 % (0-1.3); Lymphocytes % 19.8 % (15.3-44.8); MPV 9.6 fL (7.6-11.3); RBC Red Blood Cell Count 4.75 M/uL (3.86-4.86)
[2021-02-07 06:39] LABS: ALT/SGPT 23 U/L (12-78); AST/SGOT 20 U/L (15-37); Albumin 2.8 g/dL (3.4-5.0); Alkaline Phosphatase 57 U/L (45-117); BUN Blood Urea Nitrogen 8 mg/dL (7-18); Bicarbonate 25 mmol/L (21-32); Bilirubin Total 0.4 mg/dL (0.2-1.0); Ferritin 100.6 ng/mL (8-388); Glucose Level 120 mg/dL (74-106); Potassium 3.8 mmol/L (3.5-5.1); Protein, Total 6.6 g/dL (6.4-8.2); Sodium Level 140 mmol/L (136-145)
[2021-02-07 07:05] LABS: Blood Morphology Comment NOT SEEN (NOT SEEN); Platelet Estimate ADEQ; White Blood Cell Scan OK (OK)
[2021-02-07] MEDS ORDERED: Remdesivir 200 MG in NA CHLORIDE 0.9% 250 ML IV ONE (08:00)
[2021-02-07] MEDS: ZINC SULFATE 220 MG CAP PO SCH (09:00)
[2021-02-07] MEDS: FAMOTIDINE 20 MG TAB PO SCH ×2 (09:00→20:31)
[2021-02-07] MEDS: ASCORBIC ACID 500 MG TABLET PO SCH ×4 (09:00→20:30)
[2021-02-07] MEDS ORDERED: ENOXAPARIN 100 MG/ML SYR SQ SCH ×2 (09:00)
[2021-02-07] MEDS: THIAMINE HCL 100 MG TABLET PO SCH (09:00)
[2021-02-07] MEDS: METHYLPREDNISOLONE 125 MG INJ IV SCH ×2 (09:00→20:31)
[2021-02-07] MEDS: VITAMIN D 1000 UNIT TAB PO SCH (09:00)
[2021-02-07] MEDS ORDERED: METHYLPREDNISOLONE 125 MG INJ ONE (09:36)
[2021-02-07] MEDS ORDERED: ZINC SULFATE 220 MG CAP ONE (09:36)
[2021-02-07] MEDS ORDERED: ASCORBIC ACID 500 MG TABLET ONE ×2 (09:36→14:08)
[2021-02-07] MEDS ORDERED: ENOXAPARIN 100 MG/ML SYR SQ ONE (09:36)
[2021-02-07] MEDS ORDERED: VITAMIN D 1000 UNIT TAB ONE (09:36)
[2021-02-07] MEDS ORDERED: FAMOTIDINE 20 MG TAB ONE (09:37)
[2021-02-07] MEDS ORDERED: ALBUTEROL 2.5 MG/3 ML NEB SOL NEB PRN (10:22)
[2021-02-07] MEDS ORDERED: BENZONATATE 100 MG CAP PO ONE (14:08)
[2021-02-07] MEDS: BENZONATATE 100 MG CAP PO PRN (14:30)
[2021-02-07] MEDS: IVERMECTIN 3 MG TABLET PO SCH (16:22)
[2021-02-07] MEDS: RIVAROXABAN 15 MG TABLET PO SCH (20:31)
[2021-02-08 04:03] LABS: Absolute Lymphocytes (CBC) 0.5 K/uL (0.7-4.9); Basophils % 0.2 % (0-1.3); Hematocrit 41.6 % (36.0-45.0); Lymphocytes % 5.9 % (15.3-44.8); MPV 9.8 fL (7.6-11.3); RBC Red Blood Cell Count 5.02 M/uL (3.86-4.86)
[2021-02-08 04:15] LABS: ALT/SGPT 24 U/L (12-78); AST/SGOT 23 U/L (15-37); BUN Blood Urea Nitrogen 8 mg/dL (7-18); Bicarbonate 30 mmol/L (21-32); Glucose Level 122 mg/dL (74-106); Potassium 3.9 mmol/L (3.5-5.1); Sodium Level 145 mmol/L (136-145)
[2021-02-08 04:42] LABS: Blood Morphology Comment NOT SEEN (NOT SEEN); Platelet Estimate ADEQ
--- NOTE | 2021-02-08 07:35 | P.PN ---
Subjective Date of Service: 02/07/21 Subjective: No new changes, No C/O voiced, Improving patient is doing well with no new complaints. Clinically patient is doing much better. Spoke to physician assistant plant manager last night and patient was very tachypneic but this has much improved. Diarrhea is better. Patient had Evans catheter and spoke to family regarding this. Told ER nurse so we can remove this. Patient needs to get out of bed and start ambulating. On 4 L oxygen and need to completely get this weaned off. Review of Systems 10-point ROS is otherwise unremarkable Physical Examination - Vital Signs Temperature: 97.3 F Blood Pressure: 111/70 Pulse: 87 Respirations: 18 Pulse Ox (%): 97 - Physical Exam General: Alert, In no apparent distress, Oriented x3 Respiratory: Diminished, Crackles/rales Cardiovascular: Regular rate/rhythm, Normal S1 S2, No murmurs Gastrointestinal: Normal bowel sounds, Soft and benign, Non-distended, No tenderness Musculoskeletal: No clubbing, No swelling, No tenderness Neurological: Sensation intact, Cranial nerves 3-12 intact - Studies Medications List Reviewed: Yes Assessment & Plan - Problems (Diagnosis) (1) Pneumonia due to COVID-19 virus Current Visit: Yes Status: Acute (2) Multiple sclerosis Current Visit: Yes Status: Acute - Plan Plan: 1. IV steroids 2. antiviral therapy 3. Zithromycin 250 mg IVPB daily 4. Lovenox 40 mg subcu daily; 5. O2 per protocol; 6. Check labs 7. Discussed with family plan of care; patient needs to get out of bed and ambulate and will DC Evans catheter. Anticipate discharge over the next 24-48 hours. 8. GI prophylaxis - Advance Directives Does patient have a Living Will: No Does patient have a Durable POA for Healthcare: No
[2021-02-08] MEDS: VITAMIN D 1000 UNIT TAB PO SCH (07:40)
[2021-02-08] MEDS: ZINC SULFATE 220 MG CAP PO SCH (07:40)
[2021-02-08] MEDS: THIAMINE HCL 100 MG TABLET PO SCH (07:40)
[2021-02-08] MEDS: ASCORBIC ACID 500 MG TABLET PO SCH ×4 (07:40→20:43)
[2021-02-08] MEDS: RIVAROXABAN 15 MG TABLET PO SCH (07:40)
[2021-02-08] MEDS: FAMOTIDINE 20 MG TAB PO SCH ×2 (07:40→20:43)
[2021-02-08] MEDS: METHYLPREDNISOLONE 125 MG INJ IV SCH ×2 (07:41→20:44)
--- NOTE | 2021-02-08 08:32 | P.CNS ---
Date of Consult: 02/08/21 Reason for Consult: Jasso virus pneumonia Primary Care Provider: Dr. Beckwith Chief Complaint: covid pneumonia History of Present Illness: Patient is 30 years of age with a history of multiple scleroses tested positive for coronal virus 62 is presented with increasing cough shortness of breath was seen in the ER discharged came back again worsening shortness of breath she is currently on nasal cannula oxygen seems to be doing better complaining of cough Allergies Latex, Natural Rubber Allergy (Verified 02/07/21 18:56) Itching Home Medications: Albuterol Inhaler [Ventolin Inhaler*] 2 puff IH PRN 02/06/21 Azithromycin [Zithromax] 250 mg PO DAILY 02/06/21 Benzonatate 100 mg PO PRN 02/06/21 Ondansetron [Zofran (Odt)*] 4 mg PO PRN 02/06/21 - Past Medical/Surgical History Diabetic: No -: multiple sclerosis -: tonsillectomy -: eye surgery - Family History Mother Notes: asthma Father Medical History: Hypertension - Social History Alcohol use: No CD- Drugs: No Caffeine use: No Place of Residence: Home Review of Systems General: Weakness Respiratory: Cough, Shortness of Breath Physical Examination Temp Pulse Resp BP Pulse Ox 97.3 F 87 18 111/70 97 02/08/21 07:35 02/08/21 07:35 02/08/21 07:35 02/08/21 07:35 02/08/21 07:35 - Problems (1) Pneumonia due to COVID-19 virus Current Visit: Yes Status: Acute Plan: Patient is 30 years of age admitted with pneumonia due to coronal virus currently stable on nasal cannula oxygen continue with present medication including steroidson Remdesmire. Labs reviewed vital signs stable possible discharge in 1 or 2 days with home oxygen and steroid
[2021-02-08] MEDS ORDERED: Remdesivir 100 MG in NA CHLORIDE 0.9% 250 ML IV SCH ×4 (09:00)
[2021-02-08] MEDS: ACETAMINOPHEN 500 MG TAB PO PRN ×2 (09:27→20:43)
--- NOTE | 2021-02-08 09:57 | P.PN ---
Subjective Date of Service: 02/08/21 Primary Care Provider: Dr. Beckwith Chief Complaint: covid pneumonia Subjective: Improving, Doing well Physical Examination - Vital Signs Temperature: 97.6 F Blood Pressure: 112/65 Pulse: 89 Respirations: 24 Pulse Ox (%): 93 - Studies Medications List Reviewed: Yes Assessment & Plan Discharge Plan: Home Plan to discharge in: 24 Hours Physician Review Additional Text: Physical exam: Patient alert, cooperative. Currently on 4 L per nasal cannula. Heart: Regular rate were Lungs: Currently on 4 L per nasal cannula. No distress noted Abdomen: Soft, nontender Extremities: Good Re to motion Impression: Dyspnea with hypoxia secondary to bilateral COVID pneumonia Multiple scleroses Plan: Continue with IV steroids, supplementation and Remdesivir. CT scan shows no pulmonary embolism. Will switch Xarelto to Eliquis for DVT and PE prophylaxis. Patient shows improvement. Currently on 4 L per nasal cannula. Will have respiratory continue to wean off. Encourage incentive spirometer, ambulation and proning. Will see how she does with 4 L or less of nasal cannula. Possible discharge as early as today if without significant desaturations or tachypnea. Will monitor the patient closely. Will discuss with pulmonology. Will continue to reassess. Will discuss with social science research assistant about arranging for home oxygen at discharge. Time Spent Managing Pts Care (In Minutes): 55
[2021-02-08 11:02] LABS: Urine Appearance CLEAR; Urine Bilirubin NEGATIVE (NEG); Urine Blood 1+ (NEG); Urine Color DK YELLOW; Urine Glucose NEGATIVE (NEG); Urine Protein 1+ (NEG); Urine Specific Gravity >=1.030 (1.005-1.030)
[2021-02-08 11:17] LABS: Urine Microscopic Reflex ORDER UMIC
[2021-02-08 11:29] LABS: Urine Bacteria 20-50 /HPF (<20); Urine Mucus 3+ /HPF (NONE SEEN)
[2021-02-08] MEDS: APIXABAN 2.5 MG TABLET PO SCH (20:43)
[2021-02-09] MEDS: ACETAMINOPHEN 500 MG TAB PO PRN ×2 (01:54→10:01)
[2021-02-09] MEDS: BENZONATATE 100 MG CAP PO PRN (01:54)
[2021-02-09] MEDS: IVERMECTIN 3 MG TABLET PO SCH (07:23)
[2021-02-09] MEDS: APIXABAN 2.5 MG TABLET PO SCH (07:23)
[2021-02-09] MEDS: FAMOTIDINE 20 MG TAB PO SCH (07:25)
[2021-02-09] MEDS: VITAMIN D 1000 UNIT TAB PO SCH (07:25)
[2021-02-09] MEDS: THIAMINE HCL 100 MG TABLET PO SCH (07:25)
[2021-02-09] MEDS: METHYLPREDNISOLONE 125 MG INJ IV SCH (07:26)
[2021-02-09] MEDS: ZINC SULFATE 220 MG CAP PO SCH (07:26)
[2021-02-09] MEDS: ASCORBIC ACID 500 MG TABLET PO SCH ×3 (07:26→16:38)
[2021-02-09 07:54] VITALS: O2SAT 90
[2021-02-09 08:21] LABS: C-Reactive Protein 34.6 mg/L (<3.00); Ferritin 125.3 ng/mL (8-388)
--- NOTE | 2021-02-09 12:38 | P.DS ---
Admission Date: 02/06/21 Discharge Date: 02/09/21 Primary Care Provider: Dr. Beckwith Disposition: ROUTINE DISCHARGE Discharge Condition: GOOD Reason for Admission: covid pneumonia Consultations: Pulmonary-Dr. Hankins Procedures: COVID: Positive CT scan: COMPARISON: No comparisons TECHNIQUE: CT angiogram of the pulmonary arteries was performed with MIP. All CT scans are performed using dose optimization technique as appropriate and may include automated exposure control or mA/KV adjustment according to patient size. FINDINGS: No evidence of pulmonary thromboembolism. No acute aortic finding demonstrated. Moderate bilateral pulmonary opacities, greatest in lung bases noted most compatible with infection/pneumonia. No significant pericardial or pleural fluid. No concerning bony finding. IMPRESSION: No evidence of pulmonary thromboembolism. Moderate basilar lung consolidation most compatible infection/pneumonia. Medical Problem List: Dyspnea with hypoxia secondary to bilateral COVID pneumonia Multiple scleroses Brief History of Present Illness: 30 yo female with multiple sclerosis presenting today with COVID+ test 6 days ago and worsening cough, runny nose, and SOB since Monday. Bing yates was seen in the ER Monday and discharged, but now presents with worsening SOB. She reports fever, and diarrhea. Denies nausea and vomiting. She reported mild improvement in cough with tessalon perles. D Dimer 606. Procal 0.06. CT scan showed no evidence of PE and moderate basilar lung consolidation. CXR showed mild bilateral pulmonary opacities, more severe on left. Patient tachycardic to 130, tachypneic to 22-43, initial sats 95% but dropped to 89% on RA, now on 5L O2 via NC. Patient was admitted for further evaluation and treatment. Hospital Course: Patient presented with dyspnea and hypoxia related to bilateral COVID 19 pneumonia. Patient had tested positive prior to admission. Patient with history of multiple scleroses. CT scan showed no pulmonary embolism but viral pneumonia noted. The patient was hospitalized and received IV steroids, supplementation and Remdesivir. Patient has done well. Patient still requires oxygen at discharge. Currently on 4 L per nasal cannula. Patient without significant distress, chest pain or shortness of breath. At discharge she will continue with home oxygen to maintain sats above 93%. Recommend to monitor her oxygen level closely. Oxygen will be weaned off with the help of pulmonology. At discharge she will continue with prednisone 20 mg 1 pill twice daily for 7 days then 1 pill once daily for 7 days. The patient may continue with Tessalon 100 mg 3 times a day as needed for cough and Pro air 2 puffs 3 times a day as needed for shortness of breath. The patient will also continue with Eliquis 2.5 mg 1 pill twice daily for at least 2 weeks to reduce the risk of pulmonary embolism/PE with COVID. Education will be provided. At discharge she will also continue with vitamin supplementation including vitamin-C 500 mg 3 times a day, vitamin-D 2000 units daily, thiamine 200 mg daily, melatonin 5 mg at bedtime, and zinc 220 mg daily. Patient will continue with incentive spirometer, ambulation and proning. Patient will continue with CDC guidelines on isolation. Patient will be provided education on COVID 19. Recommend to continue face mask use, hand washing and social distance seen. Recommend follow up with pulmonology in 1 week to follow up this hospitalization and continue her care. Pulmonology will help wean her off oxygen and make adjustments to medications. Vital Signs/Physical Exam: Temp Pulse Resp BP Pulse Ox 97.5 F 87 18 116/69 90 L 02/09/21 08:00 02/09/21 08:00 02/09/21 08:00 02/09/21 08:00 02/09/21 08:00 General: Alert, In no apparent distress, Oriented x3, Cooperative HEENT: Atraumatic Neck: Supple Respiratory: Other (Patient on 4 L without significant distress) Cardiovascular: Normal pulses, Regular rate/rhythm Gastrointestinal: No guarding Neurological: Normal speech, Normal strength at 5/5 x4 extr, Normal tone, Normal affect Laboratory Data at Discharge: WBC 8.00 K/uL (4.3-10.9) D 02/08/21 03:13 Hgb 13.6 g/dL (12.0-15.0) 02/08/21 03:13 Hct 41.6 % (36.0-45.0) 02/08/21 03:13 Plt Count 224 K/uL (152-406) D 02/08/21 03:13 PT 13.3 SECONDS (9.5-12.5) H 02/06/21 16:50 INR 1.15 02/06/21 16:50 APTT 29.4 SECONDS (24.3-36.9) 02/06/21 16:50 Sodium 145 mmol/L (136-145) 02/08/21 03:13 Potassium 3.9 mmol/L (3.5-5.1) 02/08/21 03:13 BUN 8 mg/dL (7-18) 02/08/21 03:13 Creatinine 0.53 mg/dL (0.55-1.3) L 02/08/21 03:13 Glucose 122 mg/dL (74-106) H 02/08/21 03:13 Total Bilirubin 0.4 mg/dL (0.2-1.0) 02/07/21 05:21 AST 23 U/L (15-37) 02/08/21 03:13 ALT 24 U/L (12-78) 02/08/21 03:13 Alkaline Phosphatase 57 U/L (45-117) 02/07/21 05:21 Amylase 36 U/L (25-115) 02/06/21 16:50 Lipase 60 U/L (73-393) L 02/06/21 16:50 Home Medications: Albuterol Inhaler [Ventolin Inhaler*] 2 puff IH PRN 02/06/21 Apixaban [Eliquis *] 2.5 mg PO BID #30 tablet 02/09/21 Ascorbic Acid [Vitamin C*] 500 mg PO TID #90 tablet 02/09/21 Benzonatate [Tessalon Perle*] 100 mg PO TID PRN #15 cap 02/09/21 Cholecalciferol (Vitamin D3) [Vitamin D 1000 Iu Tab*] 2,000 unit PO DAILY #60 tab 02/09/21 Melatonin 5 mg PO BEDTIME #30 tablet 02/09/21 Thiamine HCl [Vitamin B-1*] 200 mg PO DAILY #60 tablet 02/09/21 Zinc Sulfate [Zinc Sulfate*] 220 mg PO DAILY #30 cap 02/09/21 predniSONE [Prednisone] 20 mg PO SEECOM #21 tablet 02/09/21 New Medications: Apixaban [Eliquis *] 2.5 mg PO BID #30 tablet Melatonin 5 mg PO BEDTIME #30 tablet predniSONE [Prednisone] 20 mg PO SEECOM #21 tablet Benzonatate [Tessalon Perle*] 100 mg PO TID PRN #15 cap PRN Reason: Cough Thiamine HCl [Vitamin B-1*] 200 mg PO DAILY #60 tablet Ascorbic Acid [Vitamin C*] 500 mg PO TID #90 tablet Cholecalciferol (Vitamin D3) [Vitamin D 1000 Iu Tab*] 2,000 unit PO DAILY #60 tab Zinc Sulfate [Zinc Sulfate*] 220 mg PO DAILY #30 cap Physician Discharge Instructions: Patient presented with dyspnea and hypoxia related to bilateral COVID 19 pneumonia. Patient had tested positive prior to admission. Patient with history of multiple scleroses. CT scan showed no pulmonary embolism but viral pneumonia noted. The patient was hospitalized and received IV steroids, supplementation and Remdesivir. Patient has done well. Patient still requires oxygen at discharge. Currently on 4 L per nasal cannula. Patient without significant distress, chest pain or shortness of breath. At discharge she will continue with home oxygen to maintain sats above 93%. Recommend to monitor her oxygen level closely. Oxygen will be weaned off with the help of pulmonology. At discharge she will continue with prednisone 20 mg 1 pill twice daily for 7 days then 1 pill once daily for 7 days. The patient may continue with Tessalon 100 mg 3 times a day as needed for cough and Pro air 2 puffs 3 times a day as needed for shortness of breath. The patient will also continue with Eliquis 2.5 mg 1 pill twice daily for at least 2 weeks to reduce the risk of pulmonary embolism/PE with COVID. Education will be provided. At discharge she will also continue with vitamin supplementation including vitamin-C 500 mg 3 times a day, vitamin-D 2000 units daily, thiamine 200 mg daily, melatonin 5 mg at bedtime, and zinc 220 mg daily. Patient will continue with incentive spirometer, ambulation and proning. Patient will continue with CDC guidelines on isolation. Patient will be provided education on COVID 19. Recommend to continue face mask use, hand washing and social distance seen. Recommend follow up with pulmonology in 1 week to follow up this hospitalization and continue her care. Pulmonology will help wean her off oxygen and make adjustments to medications. Follow up with PCP in 1 week to follow up this hospitalization. Diet: AHA Activity: Ad librado Followup: NONE,NONE [Primary Care Provider] - Time spent managing pt's care (in minutes): 55
[2021-02-09 13:50] VITALS: BP 118/68; TEMP 97.6
== END 2021-02-09 17:29 | disposition home or self-care (01) | DRG 177 ==
LOC: ER 15:33 → ERHOLD 21:11 → 4TH 02-07 15:47
PROVIDERS: ADMIT Hospitalist; ATTEND Family Medicine
PROC: XW033E5 Introduction of Remdesivir Anti-infective into Peripheral Vein, Percutaneous Approach, New Technology Group 5 (ICD-10-PCS; principal; 2021-02-08)
DX: U07.1 COVID-19 (principal); J12.82 Pneumonia due to coronavirus disease 2019; G35 Multiple sclerosis; R09.02 Hypoxemia; Z79.899 Other long term (current) drug therapy; Z91.040 Latex allergy status; Z79.01 Long term (current) use of anticoagulants; Z79.52 Long term (current) use of systemic steroids
CPT/HCPCS: 36415; 71045; 71275; 80048; 80053; 80076; 81003; 81015; 82150; 82550; 82553; 82728; 83605; 83690; 84145; 84450; 84460; 84484; 85025; 85379; 85610; 85730; 86140; 87040; 87077; 87086; 87088; 87186; 93005; 94640; 94760; 96374; 96375; 99285; J1100; J1650; J2930; J3475; J7030; Q9967